=== PATIENT | male | born 1955 | race Caucasian/White ===

== ENCOUNTER 2017-07-30 15:15 | Inpatient (IN) | payer MEDICARE, OTHER ==
[~2017-07-30] VITALS: Ht 172.7 cm; Wt 90.9 kg
[2017-07-30 16:02] LABS: BASOPHILS % (AUTO) 0.1 % (0-1); EOSINOPHILS % (AUTO) 0 % (0-6); HEMOGLOBIN 15.1 g/dl (14.0-17.9); LYMPHOCYTES # (AUTO) 1.6 X10'3 (1.1-4.8); LYMPHOCYTES % (AUTO) 7.9 % (21-51); MEAN CORPUSCULAR HEMOGLOBIN 29.7 PG (27.0-31.0); MEAN CORPUSCULAR HGB CONC 34.4 % (33.0-36.5); MEAN CORPUSCULAR VOLUME 86.3 FL (78-98); MEAN PLATELET VOLUME 7.6 FL (7.4-10.4); MONOCYTES # (AUTO) 1.3 X10'3 (0-0.9); MONOCYTES % (AUTO) 6.6 % (2-12); NEUTROPHILS # (AUTO) 17.6 X10'3 (1.8-7.7); NEUTROPHILS % (AUTO) 85.4 % (42-75); PLATELET COUNT 235 X10'3 (140-440); WHITE BLOOD COUNT 20.6 X10'3 (4.5-11.0)
[2017-07-30] MEDS ORDERED: vancomycin/NS 1 GM ADD-VANTAGE 250 ML IV ONE ×2 (16:10→19:00)
[2017-07-30 16:12] LABS: INR 1.1 INR; PARTIAL THROMBOPLASTIN TIME 31 SECONDS (22-32); PROTHROMBIN TIME 11.1 SECONDS (9.0-12.0)
[2017-07-30] MEDS ORDERED: ipratropium/albuterol 3ml nebule NEB ONE (16:15)
[2017-07-30 16:19] LABS: ALANINE AMINOTRANSFERASE 35 U/L (12-78); ALBUMIN 3.2 G/DL (3.4-5.0); ALBUMIN/GLOBULIN RATIO 0.7 (1.1-1.5); ALKALINE PHOSPHATASE 66 IU/L (46-116); ANION GAP 8 (8-16); ASPARTATE AMINO TRANSFERASE 15 U/L (10-37); BILIRUBIN,TOTAL 0.8 MG/DL (0.1-1.0); BLOOD UREA NITROGEN 18 MG/DL (7-18); BUN/CREATININE RATIO 15.7 (5.4-32.0); CALCIUM 8.7 MG/DL (8.5-10.1); CHLORIDE 95 MMOL/L (99-107); CREATININE 1.15 MG/DL (0.60-1.10); GLUCOSE 122 MG/DL (70-104); POTASSIUM 3.4 MMOL/L (3.5-5.1); SODIUM 131 MMOL/L (135-145); TOTAL CARBON DIOXIDE 27.7 MMOL/L (24-32); TOTAL PROTEIN 7.9 G/DL (6.4-8.2); eGFR 65 ML/MIN
[2017-07-30] MEDS ORDERED: normal saline 1000ml 1,000 ML IV ONE ×2 (16:35)
[2017-07-30 16:43] LABS: CREATINE KINASE 176 U/L (39-308)
[2017-07-30 17:01] LABS: CLARITY,URINE CLEAR (Clear); COLOR,URINE YELLOW (Yellow); GLUCOSE, URINE NEGATIVE (Neg); KETONES,URINE NEGATIVE (Neg); LEUKOCYTE ESTERASE ,URINE NEGATIVE (Neg); NITRITES, URINE NEGATIVE (Neg); OCCULT BLOOD,URINE SMALL (Neg); PROTEIN,URINE NEGATIVE (Neg); UROBILINOGEN,URINE 0.2 E.U/dL (0.2-1.0)
[2017-07-30 17:11] LABS: UA COLLECTION TYPE CLN CATCH MIDSTREAM
[2017-07-30 17:12] LABS: BACTERIA,URINE NONE SEEN /HPF (Neg); MUCUS STRANDS FEW /LPF (Neg); RBC,URINE 0-2 /HPF (0-2); SQUAMOUS EPITHELIAL CELL,UR FEW /LPF (FEW); WBC,URINE 0-4 /HPF (0-4)
[2017-07-30 17:15] LABS: URINE AMPHETAMINE SCREEN POSITIVE (Neg); URINE BARBITUATE SCREEN NEGATIVE (Neg); URINE BENZODIAZEPINES SCREEN NEGATIVE (Neg); URINE CANNABINOID SCREEN NEGATIVE (Neg); URINE COCAINE SCREEN NEGATIVE (Neg); URINE METHADONE SCREEN NEGATIVE (Neg); URINE OPIATE SCREEN NEGATIVE (Neg); URINE PHENCYCLIDINE SCREEN NEGATIVE (Neg)
[2017-07-30] MEDS ORDERED: acetaminophen 325mg tablet PO PRN ×4 (17:15→17:20)
[2017-07-30] MEDS ORDERED: ondansetron/PF 4mg/2ml inj IV PRN ×4 (17:15→17:20)
[2017-07-30] MEDS ORDERED: mag hydrox/Alum hydrox/simeth 30ml oral suspension PO PRN ×4 (17:15→17:20)
[2017-07-30] MEDS ORDERED: magnesium hydroxide 30ml (MOM) UD suspension PO PRN ×4 (17:15→17:20)
[2017-07-30] MEDS ORDERED: HYDROcodone/acetaminophen 5mg/325mg tablet PO PRN (17:15)
[2017-07-30] MEDS ORDERED: morphine 4 MG/ML inj SYRINge IV PRN ×2 (17:15)
[2017-07-30] MEDS ORDERED: magnesium 4gm in 100ml NS 100 ML IV PRN (17:20)
[2017-07-30] MEDS ORDERED: potassium Cl 40MEQ/NS 500ml 500 ML IV PRN ×2 (17:20)
[2017-07-30] MEDS ORDERED: potassium Cl 20 mEq SR tablet PO PRN (17:20)
[2017-07-30] MEDS ORDERED: magnesium Cl slow-release 64mg tablet PO PRN (17:20)
[2017-07-30] MEDS ORDERED: magnesium 2GM in 50ml NS 50 ML IV PRN (17:20)
[2017-07-30] MEDS: normal saline 1000ml 1,000 ML IV SCH (18:39)
[2017-07-30 20:30] VITALS: BP 119/72
[2017-07-30] MEDS: heparin, porcine 5000 units/ml vial SQ SCH (20:34)
[2017-07-30] MEDS: docusate sod 100mg capsule PO SCH (20:34)
[2017-07-30] MEDS ORDERED: temazepam 15mg capsule PO PRN (21:00)
[2017-07-30] MEDS: piperacillin-tazo 2.25gm/50ml 50 ML IV SCH (23:36)
[2017-07-31] VITALS: BP 118/74
[2017-07-31] MEDS: albuterol 2.5 MG/3 ML nebule NEB PRN ×2 (02:47→07:12)
[2017-07-31] MEDS: normal saline 1000ml 1,000 ML IV SCH ×3 (03:23→23:14)
[2017-07-31] MEDS: vancomycin inj 1,250 MG in normal saline 250ml IV soln 250 ML IV SCH ×2 (04:33→16:33)
[2017-07-31 04:43] LABS: BASOPHILS % (AUTO) 0.1 % (0-1); EOSINOPHILS # (AUTO) 0.1 X10'3 (0-0.9); EOSINOPHILS % (AUTO) 0.5 % (0-6); HEMATOCRIT 36.2 % (42.0-52.0); HEMOGLOBIN 12.5 g/dl (14.0-17.9); LYMPHOCYTES # (AUTO) 1.3 X10'3 (1.1-4.8); LYMPHOCYTES % (AUTO) 8.2 % (21-51); MEAN CORPUSCULAR HEMOGLOBIN 29.9 PG (27.0-31.0); MEAN CORPUSCULAR HGB CONC 34.6 % (33.0-36.5); MEAN CORPUSCULAR VOLUME 86.6 FL (78-98); MEAN PLATELET VOLUME 6.9 FL (7.4-10.4); MONOCYTES # (AUTO) 1.2 X10'3 (0-0.9); MONOCYTES % (AUTO) 7.2 % (2-12); NEUTROPHILS # (AUTO) 13.6 X10'3 (1.8-7.7); PLATELET COUNT 184 X10'3 (140-440); RED BLOOD COUNT 4.18 X10'6 (4.70-6.10); RED CELL DISTRIBUTION WIDTH 17.5 % (11.5-14.5); WHITE BLOOD COUNT 16.2 X10'3 (4.5-11.0)
[2017-07-31 05:01] LABS: ALANINE AMINOTRANSFERASE 30 U/L (12-78); ALBUMIN 2.5 G/DL (3.4-5.0); ALBUMIN/GLOBULIN RATIO 0.6 (1.1-1.5); ALKALINE PHOSPHATASE 51 IU/L (46-116); ANION GAP 10 (8-16); ASPARTATE AMINO TRANSFERASE 15 U/L (10-37); BILIRUBIN,TOTAL 0.7 MG/DL (0.1-1.0); BLOOD UREA NITROGEN 15 MG/DL (7-18); BUN/CREATININE RATIO 16.9 (5.4-32.0); CALCIUM 7.6 MG/DL (8.5-10.1); CHLORIDE 98 MMOL/L (99-107); CREATININE 0.89 MG/DL (0.60-1.10); GLUCOSE 110 MG/DL (70-104); MAGNESIUM 1.5 MG/DL (1.5-2.4); POTASSIUM 3.5 MMOL/L (3.5-5.1); SODIUM 132 MMOL/L (135-145); TOTAL CARBON DIOXIDE 23.8 MMOL/L (24-32); TOTAL PROTEIN 6.4 G/DL (6.4-8.2); eGFR 87 ML/MIN
[2017-07-31] MEDS: acetaminophen 325mg tablet PO PRN ×2 (06:44→23:23)
[2017-07-31 06:48] VITALS: BP 130/79
[2017-07-31] MEDS ORDERED: FLU VACC QS2017-18 36MOS UP/PF 60 MCG/0.5 ML SYRINGE IMVAC ONE (07:00)
[2017-07-31] MEDS ORDERED: pneumococcal 23-VAL P-sac vacc 25 mcg/0.5ml vial IMVAC ONE (07:00)
[2017-07-31] MEDS: K and/or MAG REPLACEMENT MC SCH (08:00)
[2017-07-31] MEDS: piperacillin-tazo 2.25gm/50ml 50 ML IV SCH ×3 (08:30→23:32)
[2017-07-31] MEDS: heparin, porcine 5000 units/ml vial SQ SCH ×2 (08:33→20:39)
[2017-07-31] MEDS: docusate sod 100mg capsule PO SCH ×2 (08:33→20:38)
[2017-07-31] MEDS: diltiazem CD 120mg capsule (once-daily) PO SCH (08:34)
[2017-07-31] MEDS: montelukast 10mg tablet PO SCH (08:34)
[2017-07-31] MEDS: HYDROcodone/acetaminophen 10/325mg tab PO PRN ×2 (08:34→15:28)
[2017-07-31] MEDS: pantoprazole 40mg Tablet.DR PO SCH (08:34)
[2017-07-31 11:00] VITALS: BP 104/73
[2017-07-31] MEDS ORDERED: BUDE10.2 INH (12:03)
[2017-07-31] MEDS ORDERED: TIOT4MIS5 IH (12:03)
[2017-07-31] MEDS ORDERED: ALBU6.7H INH (12:03)
[2017-07-31] MEDS: ipratropium 0.5 MG/2.5ML nebule IH SCH ×2 (15:39→20:18)
[2017-07-31] MEDS: fluticasone/vilanterol 200mcg/25mcg inhaler IH SCH (15:39)
[2017-07-31 20:00] VITALS: BP 101/71
[2017-07-31] MEDS: lactobacillus rhamnosus 10,000 MMU CELLS/CAPSULE PO SCH (20:38)
[2017-08-01] VITALS: BP 122/85
[2017-08-01] MEDS: ipratropium 0.5 MG/2.5ML nebule IH SCH ×4 (02:53→21:59)
[2017-08-01] MEDS ORDERED: VANCOMYCIN LEVEL IV ONE (04:30)
[2017-08-01] MEDS: vancomycin inj 1,250 MG in normal saline 250ml IV soln 250 ML IV SCH ×3 (04:49→22:11)
[2017-08-01 05:15] LABS: BASOPHILS % (AUTO) 0.2 % (0-1); EOSINOPHILS # (AUTO) 0.2 X10'3 (0-0.9); EOSINOPHILS % (AUTO) 1.5 % (0-6); HEMATOCRIT 35.6 % (42.0-52.0); HEMOGLOBIN 12.4 g/dl (14.0-17.9); LYMPHOCYTES # (AUTO) 1.5 X10'3 (1.1-4.8); LYMPHOCYTES % (AUTO) 12.8 % (21-51); MEAN CORPUSCULAR HGB CONC 34.7 % (33.0-36.5); MEAN CORPUSCULAR VOLUME 86.2 FL (78-98); MEAN PLATELET VOLUME 7.3 FL (7.4-10.4); MONOCYTES # (AUTO) 1.1 X10'3 (0-0.9); NEUTROPHILS # (AUTO) 8.9 X10'3 (1.8-7.7); NEUTROPHILS % (AUTO) 76.5 % (42-75); PLATELET COUNT 188 X10'3 (140-440); RED BLOOD COUNT 4.13 X10'6 (4.70-6.10); RED CELL DISTRIBUTION WIDTH 17.3 % (11.5-14.5); WHITE BLOOD COUNT 11.7 X10'3 (4.5-11.0)
[2017-08-01 06:00] VITALS: BP 121/72
[2017-08-01] MEDS: normal saline 1000ml 1,000 ML IV SCH ×3 (06:08→22:16)
[2017-08-01 06:12] LABS: ALANINE AMINOTRANSFERASE 27 U/L (12-78); ALBUMIN 2.3 G/DL (3.4-5.0); ALBUMIN/GLOBULIN RATIO 0.5 (1.1-1.5); ALKALINE PHOSPHATASE 54 IU/L (46-116); ANION GAP 10 (8-16); ASPARTATE AMINO TRANSFERASE 17 U/L (10-37); BILIRUBIN,TOTAL 0.6 MG/DL (0.1-1.0); BLOOD UREA NITROGEN 13 MG/DL (7-18); BUN/CREATININE RATIO 15.1 (5.4-32.0); CALCIUM 7.9 MG/DL (8.5-10.1); CHLORIDE 98 MMOL/L (99-107); CREATININE 0.86 MG/DL (0.60-1.10); GLUCOSE 101 MG/DL (70-104); MAGNESIUM 1.7 MG/DL (1.5-2.4); POTASSIUM 3.4 MMOL/L (3.5-5.1); SODIUM 132 MMOL/L (135-145); TOTAL CARBON DIOXIDE 24.5 MMOL/L (24-32); TOTAL PROTEIN 6.6 G/DL (6.4-8.2); VANCOMYCIN,TROUGH 6.7 UG/ML (6.0-14.0); eGFR > 90 ML/MIN
[2017-08-01] MEDS: docusate sod 100mg capsule PO SCH ×2 (07:37→19:33)
[2017-08-01] MEDS: lactobacillus rhamnosus 10,000 MMU CELLS/CAPSULE PO SCH ×2 (07:37→19:33)
[2017-08-01] MEDS: diltiazem CD 120mg capsule (once-daily) PO SCH (07:37)
[2017-08-01] MEDS: pantoprazole 40mg Tablet.DR PO SCH (07:37)
[2017-08-01] MEDS: piperacillin-tazo 2.25gm/50ml 50 ML IV SCH ×2 (07:37→16:45)
[2017-08-01] MEDS: montelukast 10mg tablet PO SCH (07:37)
[2017-08-01] MEDS: heparin, porcine 5000 units/ml vial SQ SCH ×2 (07:38→19:33)
[2017-08-01] MEDS: potassium Cl 20 mEq SR tablet PO PRN ×3 (07:48→19:35)
[2017-08-01] MEDS: HYDROcodone/acetaminophen 10/325mg tab PO PRN ×2 (07:48→13:20)
[2017-08-01] MEDS: K and/or MAG REPLACEMENT MC SCH (08:00)
[2017-08-01] MEDS: fluticasone/vilanterol 200mcg/25mcg inhaler IH SCH (08:12)
[2017-08-01 11:24] VITALS: BP 106/69
[2017-08-01 12:19] LABS: BASOPHILS % (AUTO) 0.2 % (0-1); EOSINOPHILS # (AUTO) 0.2 X10'3 (0-0.9); EOSINOPHILS % (AUTO) 1.4 % (0-6); HEMATOCRIT 36.8 % (42.0-52.0); LYMPHOCYTES # (AUTO) 1.6 X10'3 (1.1-4.8); LYMPHOCYTES % (AUTO) 12.1 % (21-51); MEAN CORPUSCULAR HEMOGLOBIN 30.1 PG (27.0-31.0); MEAN CORPUSCULAR HGB CONC 35.2 % (33.0-36.5); MEAN CORPUSCULAR VOLUME 85.6 FL (78-98); MEAN PLATELET VOLUME 6.9 FL (7.4-10.4); MONOCYTES # (AUTO) 1.3 X10'3 (0-0.9); MONOCYTES % (AUTO) 9.5 % (2-12); NEUTROPHILS # (AUTO) 10.1 X10'3 (1.8-7.7); NEUTROPHILS % (AUTO) 76.8 % (42-75); PLATELET COUNT 205 X10'3 (140-440); RED CELL DISTRIBUTION WIDTH 16.5 % (11.5-14.5); WHITE BLOOD COUNT 13.2 X10'3 (4.5-11.0)
[2017-08-01 12:37] LABS: ALBUMIN 2.5 G/DL (3.4-5.0); ANION GAP 10 (8-16); BLOOD UREA NITROGEN 11 MG/DL (7-18); BUN/CREATININE RATIO 12.1 (5.4-32.0); CALCIUM 8.4 MG/DL (8.5-10.1); CHLORIDE 97 MMOL/L (99-107); CREATININE 0.91 MG/DL (0.60-1.10); GLUCOSE 101 MG/DL (70-104); POTASSIUM 3.7 MMOL/L (3.5-5.1); SODIUM 131 MMOL/L (135-145); TOTAL CARBON DIOXIDE 24.5 MMOL/L (24-32); eGFR 85 ML/MIN
[2017-08-01] MEDS ORDERED: morphine 2 MG/ML inj. syringe IV PRN ×2 (15:35→15:40)
[2017-08-01 21:00] VITALS: BP 110/73
[2017-08-02] VITALS: BP 131/84
[2017-08-02] MEDS: piperacillin-tazo 2.25gm/50ml 50 ML IV SCH ×4 (00:10→23:50)
[2017-08-02] MEDS: acetaminophen 325mg tablet PO PRN (00:16)
[2017-08-02] MEDS: ipratropium 0.5 MG/2.5ML nebule IH SCH ×4 (04:06→20:36)
[2017-08-02] MEDS: vancomycin inj 1,250 MG in normal saline 250ml IV soln 250 ML IV SCH (04:41)
[2017-08-02 05:29] LABS: BASOPHILS % (AUTO) 0.1 % (0-1); EOSINOPHILS # (AUTO) 0.1 X10'3 (0-0.9); EOSINOPHILS % (AUTO) 1.2 % (0-6); HEMATOCRIT 35.4 % (42.0-52.0); HEMOGLOBIN 12.5 g/dl (14.0-17.9); LYMPHOCYTES # (AUTO) 1.7 X10'3 (1.1-4.8); LYMPHOCYTES % (AUTO) 14.2 % (21-51); MEAN CORPUSCULAR HEMOGLOBIN 30.6 PG (27.0-31.0); MEAN CORPUSCULAR HGB CONC 35.3 % (33.0-36.5); MEAN CORPUSCULAR VOLUME 86.6 FL (78-98); MEAN PLATELET VOLUME 7.4 FL (7.4-10.4); MONOCYTES # (AUTO) 1.2 X10'3 (0-0.9); MONOCYTES % (AUTO) 10.3 % (2-12); NEUTROPHILS # (AUTO) 8.8 X10'3 (1.8-7.7); NEUTROPHILS % (AUTO) 74.2 % (42-75); PLATELET COUNT 221 X10'3 (140-440); RED BLOOD COUNT 4.09 X10'6 (4.70-6.10); RED CELL DISTRIBUTION WIDTH 16.1 % (11.5-14.5); WHITE BLOOD COUNT 11.8 X10'3 (4.5-11.0)
[2017-08-02 05:59] LABS: ALANINE AMINOTRANSFERASE 29 U/L (12-78); ALBUMIN 2.3 G/DL (3.4-5.0); ALBUMIN/GLOBULIN RATIO 0.5 (1.1-1.5); ALKALINE PHOSPHATASE 71 IU/L (46-116); ANION GAP 8 (8-16); ASPARTATE AMINO TRANSFERASE 19 U/L (10-37); BILIRUBIN,TOTAL 0.5 MG/DL (0.1-1.0); BLOOD UREA NITROGEN 11 MG/DL (7-18); BUN/CREATININE RATIO 13.1 (5.4-32.0); CALCIUM 8.3 MG/DL (8.5-10.1); CHLORIDE 99 MMOL/L (99-107); CREATININE 0.84 MG/DL (0.60-1.10); GLUCOSE 99 MG/DL (70-104); POTASSIUM 3.7 MMOL/L (3.5-5.1); SODIUM 134 MMOL/L (135-145); TOTAL CARBON DIOXIDE 26.6 MMOL/L (24-32); eGFR > 90 ML/MIN
[2017-08-02] MEDS: normal saline 1000ml 1,000 ML IV SCH ×3 (06:08→22:23)
[2017-08-02 07:41] VITALS: BP 105/79
[2017-08-02] MEDS: docusate sod 100mg capsule PO SCH ×2 (07:49→20:26)
[2017-08-02] MEDS: montelukast 10mg tablet PO SCH (07:50)
[2017-08-02] MEDS: diltiazem CD 120mg capsule (once-daily) PO SCH (07:50)
[2017-08-02] MEDS: lactobacillus rhamnosus 10,000 MMU CELLS/CAPSULE PO SCH ×2 (07:50→20:26)
[2017-08-02] MEDS: pantoprazole 40mg Tablet.DR PO SCH (07:50)
[2017-08-02] MEDS: heparin, porcine 5000 units/ml vial SQ SCH ×2 (07:51→20:28)
[2017-08-02] MEDS: K and/or MAG REPLACEMENT MC SCH (08:00)
[2017-08-02] MEDS: fluticasone/vilanterol 200mcg/25mcg inhaler IH SCH (09:29)
[2017-08-02 11:00] VITALS: BP 99/48
[2017-08-02] MEDS ORDERED: ATOR10TA70 PO (11:47)
[2017-08-02] MEDS ORDERED: DILT120C62 PO (11:47)
[2017-08-02] MEDS ORDERED: POTA10TA15 PO (11:47)
[2017-08-02] MEDS ORDERED: CHOL500026 PO (11:47)
[2017-08-02] MEDS ORDERED: MONT10TA24 PO (11:47)
[2017-08-02] MEDS ORDERED: MAGN400C PO (11:47)
[2017-08-02] MEDS ORDERED: MAGNESIUM PO (11:47)
[2017-08-02] MEDS ORDERED: VANCOMYCIN LEVEL IV ONE (12:30)
[2017-08-02 18:30] VITALS: BP 137/75
[2017-08-03] VITALS: BP 120/85
[2017-08-03] MEDS: ipratropium 0.5 MG/2.5ML nebule IH SCH ×3 (03:37→14:04)
[2017-08-03 05:11] LABS: BASOPHILS % (AUTO) 0.3 % (0-1); EOSINOPHILS # (AUTO) 0.2 X10'3 (0-0.9); EOSINOPHILS % (AUTO) 2.7 % (0-6); HEMATOCRIT 35.8 % (42.0-52.0); HEMOGLOBIN 12.5 g/dl (14.0-17.9); LYMPHOCYTES # (AUTO) 1.8 X10'3 (1.1-4.8); LYMPHOCYTES % (AUTO) 21.6 % (21-51); MEAN CORPUSCULAR HEMOGLOBIN 30.2 PG (27.0-31.0); MEAN CORPUSCULAR VOLUME 86.3 FL (78-98); MEAN PLATELET VOLUME 6.9 FL (7.4-10.4); MONOCYTES # (AUTO) 0.9 X10'3 (0-0.9); MONOCYTES % (AUTO) 10.1 % (2-12); NEUTROPHILS # (AUTO) 5.6 X10'3 (1.8-7.7); NEUTROPHILS % (AUTO) 65.3 % (42-75); PLATELET COUNT 248 X10'3 (140-440); RED BLOOD COUNT 4.14 X10'6 (4.70-6.10); RED CELL DISTRIBUTION WIDTH 16.9 % (11.5-14.5); WHITE BLOOD COUNT 8.5 X10'3 (4.5-11.0)
[2017-08-03 05:16] LABS: ALANINE AMINOTRANSFERASE 35 U/L (12-78); ALBUMIN 2.2 G/DL (3.4-5.0); ALBUMIN/GLOBULIN RATIO 0.5 (1.1-1.5); ALKALINE PHOSPHATASE 53 IU/L (46-116); ANION GAP 6 (8-16); ASPARTATE AMINO TRANSFERASE 16 U/L (10-37); BILIRUBIN,TOTAL 0.3 MG/DL (0.1-1.0); BLOOD UREA NITROGEN 12 MG/DL (7-18); BUN/CREATININE RATIO 14.1 (5.4-32.0); CALCIUM 8.5 MG/DL (8.5-10.1); CHLORIDE 101 MMOL/L (99-107); CREATININE 0.85 MG/DL (0.60-1.10); GLUCOSE 106 MG/DL (70-104); MAGNESIUM 2.1 MG/DL (1.5-2.4); POTASSIUM 3.7 MMOL/L (3.5-5.1); SODIUM 135 MMOL/L (135-145); TOTAL CARBON DIOXIDE 27.8 MMOL/L (24-32); TOTAL PROTEIN 6.9 G/DL (6.4-8.2); eGFR > 90 ML/MIN
[2017-08-03] MEDS: normal saline 1000ml 1,000 ML IV SCH ×3 (05:28→20:45)
[2017-08-03 07:00] VITALS: BP 129/93
[2017-08-03] MEDS: piperacillin-tazo 2.25gm/50ml 50 ML IV SCH (07:53)
[2017-08-03] MEDS: lactobacillus rhamnosus 10,000 MMU CELLS/CAPSULE PO SCH ×2 (07:53→20:45)
[2017-08-03] MEDS: pantoprazole 40mg Tablet.DR PO SCH (07:53)
[2017-08-03] MEDS: diltiazem CD 120mg capsule (once-daily) PO SCH (07:53)
[2017-08-03] MEDS: montelukast 10mg tablet PO SCH (07:53)
[2017-08-03] MEDS: docusate sod 100mg capsule PO SCH ×2 (07:53→20:45)
[2017-08-03] MEDS: heparin, porcine 5000 units/ml vial SQ SCH ×2 (07:54→20:45)
[2017-08-03] MEDS: K and/or MAG REPLACEMENT MC SCH (07:54)
[2017-08-03] MEDS: fluticasone/vilanterol 200mcg/25mcg inhaler IH SCH (08:00)
[2017-08-03 11:00] VITALS: BP 121/80
[2017-08-03] MEDS ORDERED: VANCOMYCIN LEVEL IV ONE (12:30)
[2017-08-03] MEDS ORDERED: vancomycin inj 1,250 MG in normal saline 250ml IV soln 250 ML IV SCH (14:00)
[2017-08-03] MEDS: piperacillin/tazobactam inj. 3.375 GM in normal saline 100ml IV SCH ×2 (15:09→20:45)
[2017-08-03] MEDS: vancomycin inj 1,250 MG in normal saline 250ml IV soln 250 ML IV SCH (16:21)
[2017-08-03] MEDS ORDERED: MORPHINE 2MG in 2ml NS syringe IV PRN (16:51)
[2017-08-03 19:00] VITALS: BP 130/77
[2017-08-03] MEDS ORDERED: normal saline 1000ml 1,000 ML IV SCH (20:46)
[2017-08-04] MEDS: ipratropium 0.5 MG/2.5ML nebule IH SCH ×2 (00:17→07:59)
[2017-08-04] MEDS: piperacillin/tazobactam inj. 3.375 GM in normal saline 100ml IV SCH ×2 (02:18→07:27)
[2017-08-04] MEDS: albuterol 2.5 MG/3 ML nebule NEB PRN (03:27)
[2017-08-04 05:28] LABS: BASOPHILS % (AUTO) 0.5 % (0-1); EOSINOPHILS # (AUTO) 0.2 X10'3 (0-0.9); EOSINOPHILS % (AUTO) 2.8 % (0-6); HEMATOCRIT 38.6 % (42.0-52.0); HEMOGLOBIN 13.6 g/dl (14.0-17.9); LYMPHOCYTES # (AUTO) 2.2 X10'3 (1.1-4.8); LYMPHOCYTES % (AUTO) 25.7 % (21-51); MEAN CORPUSCULAR HEMOGLOBIN 30.3 PG (27.0-31.0); MEAN CORPUSCULAR HGB CONC 35.2 % (33.0-36.5); MEAN CORPUSCULAR VOLUME 85.9 FL (78-98); MEAN PLATELET VOLUME 6.6 FL (7.4-10.4); MONOCYTES # (AUTO) 0.8 X10'3 (0-0.9); MONOCYTES % (AUTO) 8.9 % (2-12); NEUTROPHILS # (AUTO) 5.2 X10'3 (1.8-7.7); NEUTROPHILS % (AUTO) 62.1 % (42-75); PLATELET COUNT 316 X10'3 (140-440); RED BLOOD COUNT 4.49 X10'6 (4.70-6.10); RED CELL DISTRIBUTION WIDTH 16.7 % (11.5-14.5); WHITE BLOOD COUNT 8.4 X10'3 (4.5-11.0)
[2017-08-04 06:07] LABS: ALANINE AMINOTRANSFERASE 43 U/L (12-78); ALBUMIN 2.5 G/DL (3.4-5.0); ALBUMIN/GLOBULIN RATIO 0.5 (1.1-1.5); ALKALINE PHOSPHATASE 59 IU/L (46-116); ANION GAP 7 (8-16); ASPARTATE AMINO TRANSFERASE 20 U/L (10-37); BILIRUBIN,TOTAL 0.3 MG/DL (0.1-1.0); BLOOD UREA NITROGEN 14 MG/DL (7-18); BUN/CREATININE RATIO 12.8 (5.4-32.0); CALCIUM 9.2 MG/DL (8.5-10.1); CHLORIDE 100 MMOL/L (99-107); CREATININE 1.09 MG/DL (0.60-1.10); GLUCOSE 107 MG/DL (70-104); POTASSIUM 4.1 MMOL/L (3.5-5.1); SODIUM 138 MMOL/L (135-145); TOTAL CARBON DIOXIDE 30.6 MMOL/L (24-32); TOTAL PROTEIN 7.5 G/DL (6.4-8.2); eGFR 69 ML/MIN
[2017-08-04 06:56] VITALS: BP 120/81
[2017-08-04 07:00] VITALS: BP 116/82
[2017-08-04] MEDS: K and/or MAG REPLACEMENT MC SCH (07:14)
[2017-08-04] MEDS: docusate sod 100mg capsule PO SCH (07:27)
[2017-08-04] MEDS: pantoprazole 40mg Tablet.DR PO SCH (07:27)
[2017-08-04] MEDS: diltiazem CD 120mg capsule (once-daily) PO SCH (07:27)
[2017-08-04] MEDS: montelukast 10mg tablet PO SCH (07:27)
[2017-08-04] MEDS: heparin, porcine 5000 units/ml vial SQ SCH ×2 (07:27→08:00)
[2017-08-04] MEDS: lactobacillus rhamnosus 10,000 MMU CELLS/CAPSULE PO SCH (07:27)
[2017-08-04] MEDS ORDERED: AMOX-580 PO (09:07)
[2017-08-04] MEDS ORDERED: POTA10TA15 PO (09:07)
[2017-08-04] MEDS ORDERED: NICO-731 TOP (09:13)
[2017-08-04] MEDS: vancomycin inj 1,250 MG in normal saline 250ml IV soln 250 ML IV SCH ×3 (09:32)
[2017-08-04] MEDS ORDERED: VANCOMYCIN LEVEL IV ONE (15:30)
== END 2017-08-04 12:23 | disposition home or self-care (01) | DRG 872 ==
LOC: ER 15:16 → ED HOLD 16:43 → SUR 3N 20:40
PROVIDERS: ADMIT Internal Medicine; ATTEND Internal Medicine
PROC: 3E0234Z Introduction of Serum, Toxoid and Vaccine into Muscle, Percutaneous Approach (ICD-10-PCS; principal; 2017-07-31)
PROC: 3E0234Z Introduction of Serum, Toxoid and Vaccine into Muscle, Percutaneous Approach (ICD-10-PCS; 2017-07-31)
DX: A41.9 Sepsis, unspecified organism (principal); E87.1 Hypo-osmolality and hyponatremia; L03.114 Cellulitis of left upper limb; I49.9 Cardiac arrhythmia, unspecified; E87.6 Hypokalemia; J45.909 Unspecified asthma, uncomplicated; F15.90 Other stimulant use, unspecified, uncomplicated; F17.210 Nicotine dependence, cigarettes, uncomplicated; Z23 Encounter for immunization; Z79.51 Long term (current) use of inhaled steroids
CPT/HCPCS: 36415; 71045; 80048; 80053; 80202; 80305; 81001; 82550; 83605; 83735; 84145; 85025; 85610; 85730; 87040; 87070; 90732; 93005; 94640; 94760; 97116; 97161; 99285; A6258; J1644; J2543; J3370; J7030

== ENCOUNTER → 2017-12-07 | Emergency (ER) | payer MEDICARE, OTHER ==
[~2017-12-07] VITALS: Ht 172.7 cm; Wt 90.9 kg
[~2017-12-07] MED LIST: ALBU6.7H INH; ATOR10TA70 PO; BUDE10.2 INH; CHOL500026 PO; DILT120C62 PO; LIDOcaine 1.5% w/epinephrine 1:200,000 5ml ampul IJ ONE; MAGNESIUM PO; MONT10TA24 PO; NICO-731 TOP; TETanus/Pertussis (Acell)/Diphther VAC/PF (Tdap-Adult) 0.5ml syringe IMVAC ONE; TIOT4MIS5 IH; ipratropium/albuterol 3ml nebule NEB ONE; normal saline 1000ML IV soln IVB ONE
[2017-12-08 03:05] LABS: BASOPHILS % (AUTO) 0.6 % (0-1); EOSINOPHILS # (AUTO) 0.2 X10'3 (0-0.9); EOSINOPHILS % (AUTO) 2.5 % (0-6); HEMATOCRIT 39.4 % (42.0-52.0); HEMOGLOBIN 13.6 g/dl (14.0-17.9); LYMPHOCYTES # (AUTO) 2.1 X10'3 (1.1-4.8); LYMPHOCYTES % (AUTO) 26.8 % (21-51); MEAN CORPUSCULAR HGB CONC 34.4 % (33.0-36.5); MEAN CORPUSCULAR VOLUME 90.1 FL (78-98); MEAN PLATELET VOLUME 7.1 FL (7.4-10.4); MONOCYTES # (AUTO) 0.7 X10'3 (0-0.9); MONOCYTES % (AUTO) 9.3 % (2-12); NEUTROPHILS # (AUTO) 4.7 X10'3 (1.8-7.7); NEUTROPHILS % (AUTO) 60.8 % (42-75); PLATELET COUNT 240 X10'3 (140-440); RED BLOOD COUNT 4.38 X10'6 (4.70-6.10); RED CELL DISTRIBUTION WIDTH 13.5 % (11.5-14.5); WHITE BLOOD COUNT 7.7 X10'3 (4.5-11.0)
[2017-12-08 03:22] LABS: ALANINE AMINOTRANSFERASE 28 U/L (12-78); ALBUMIN 3.1 G/DL (3.4-5.0); ALBUMIN/GLOBULIN RATIO 0.9 (1.1-1.5); ALKALINE PHOSPHATASE 67 IU/L (46-116); ANION GAP 7 (8-16); ASPARTATE AMINO TRANSFERASE 11 U/L (10-37); BILIRUBIN,TOTAL 0.2 MG/DL (0.1-1.0); BLOOD UREA NITROGEN 18 MG/DL (7-18); BUN/CREATININE RATIO 17.6 (5.4-32.0); CALCIUM 8.6 MG/DL (8.5-10.1); CHLORIDE 104 MMOL/L (99-107); CREATININE 1.02 MG/DL (0.60-1.10); GLUCOSE 115 MG/DL (70-104); POTASSIUM 3.2 MMOL/L (3.5-5.1); SODIUM 139 MMOL/L (135-145); TOTAL CARBON DIOXIDE 27.8 MMOL/L (24-32); TOTAL PROTEIN 6.4 G/DL (6.4-8.2); eGFR 74 ML/MIN
[2017-12-08 03:26] LABS: ETHANOL < 0.010 GM/DL (0.0-0.010)
[2017-12-08 06:05] VITALS: BP 142/94
[2017-12-08 06:10] LABS: URINE AMPHETAMINE SCREEN POSITIVE (Neg); URINE BARBITUATE SCREEN NEGATIVE (Neg); URINE BENZODIAZEPINES SCREEN NEGATIVE (Neg); URINE CANNABINOID SCREEN NEGATIVE (Neg); URINE COCAINE SCREEN NEGATIVE (Neg); URINE METHADONE SCREEN NEGATIVE (Neg); URINE OPIATE SCREEN NEGATIVE (Neg); URINE PHENCYCLIDINE SCREEN NEGATIVE (Neg)
== END | disposition left against medical advice (07) ==
LOC: ER 23:16
DX: S01.01XA Laceration without foreign body of scalp, initial encounter (principal); J45.909 Unspecified asthma, uncomplicated; F17.200 Nicotine dependence, unspecified, uncomplicated; F15.90 Other stimulant use, unspecified, uncomplicated; Z79.899 Other long term (current) drug therapy; W01.0XXA Fall on same level from slipping, tripping and stumbling without subsequent striking against object, initial encounter; Y93.89 Activity, other specified; Y92.89 Other specified places as the place of occurrence of the external cause; Y99.8 Other external cause status
CPT/HCPCS: 12002; 36415; 70450; 72125; 80053; 80305; 80320; 82948; 85025; 90471; 90715; 93005; 94640; 99285; J3490

== ENCOUNTER 2017-12-31 10:34 | Emergency (ER) | payer MEDICARE, OTHER ==
[~2017-12-31] VITALS: Ht 172.7 cm; Wt 71.0 kg
[~2017-12-31 10:34] MED LIST changes: -LIDOcaine 1.5% w/epinephrine 1:200,000 5ml ampul IJ ONE; -TETanus/Pertussis (Acell)/Diphther VAC/PF (Tdap-Adult) 0.5ml syringe IMVAC ONE; -ipratropium/albuterol 3ml nebule NEB ONE; -normal saline 1000ML IV soln IVB ONE
[2017-12-31 10:43] VITALS: BP 143/96
== END 2017-12-31 11:54 | disposition home or self-care (01) ==
LOC: ER 10:35
DX: S01.01XD Laceration without foreign body of scalp, subsequent encounter (principal); I49.9 Cardiac arrhythmia, unspecified; J45.909 Unspecified asthma, uncomplicated; F15.10 Other stimulant abuse, uncomplicated; Z79.899 Other long term (current) drug therapy; W20.8XXD Other cause of strike by thrown, projected or falling object, subsequent encounter
CPT/HCPCS: 99281

== ENCOUNTER 2019-04-07 12:13 | Emergency (ER) | payer MEDICARE, OTHER ==
[~2019-04-07] VITALS: Ht 172.7 cm; Wt 81.8 kg
[~2019-04-07 12:13] MED LIST changes: -ALBU6.7H INH; +ALBU6.7H9 INH
[2019-04-07 12:23] VITALS: BP 133/100
[2019-04-07 13:07] LABS: BASOPHILS # (AUTO) 0.1 X10'3 (0-0.2); BASOPHILS % (AUTO) 0.7 % (0-1); EOSINOPHILS # (AUTO) 0.1 X10'3 (0-0.9); EOSINOPHILS % (AUTO) 0.9 % (0-6); HEMOGLOBIN 14.3 g/dl (14.0-17.9); LYMPHOCYTES # (AUTO) 1.9 X10'3 (1.1-4.8); LYMPHOCYTES % (AUTO) 16.4 % (21-51); MEAN CORPUSCULAR HEMOGLOBIN 30.8 PG (27.0-31.0); MEAN CORPUSCULAR VOLUME 90.6 FL (78-98); MEAN PLATELET VOLUME 6.7 FL (7.4-10.4); MONOCYTES # (AUTO) 1.1 X10'3 (0-0.9); MONOCYTES % (AUTO) 9.6 % (2-12); NEUTROPHILS # (AUTO) 8.3 X10'3 (1.8-7.7); NEUTROPHILS % (AUTO) 72.4 % (42-75); PLATELET COUNT 249 X10'3 (140-440); RED BLOOD COUNT 4.64 X10'6 (4.70-6.10); RED CELL DISTRIBUTION WIDTH 13.6 % (11.5-14.5); WHITE BLOOD COUNT 11.4 X10'3 (4.5-11.0)
[2019-04-07] MEDS ORDERED: BUDE10.2 INH (13:20)
[2019-04-07] MEDS ORDERED: ALBU8.5H8 INH (13:20)
[2019-04-07] MEDS ORDERED: ipratropium/albuterol 3ml nebule NEB ONE (13:20)
[2019-04-07] MEDS ORDERED: PRED20TA PO (13:20)
[2019-04-07] MEDS ORDERED: AZIT-63 PO (13:20)
[2019-04-07] MEDS ORDERED: azithromycin 250mg tablet PO ONE (13:20)
[2019-04-07] MEDS ORDERED: dexamethasone 4mg tablet PO ONE (13:20)
[2019-04-07 13:21] LABS: ALANINE AMINOTRANSFERASE 40 U/L (12-78); ALBUMIN 3.6 G/DL (3.4-5.0); ALBUMIN/GLOBULIN RATIO 0.9 (1.1-1.5); ALKALINE PHOSPHATASE 74 IU/L (46-116); ANION GAP 6 (8-16); ASPARTATE AMINO TRANSFERASE 29 U/L (10-37); BILIRUBIN,TOTAL 0.7 MG/DL (0.1-1.0); BLOOD UREA NITROGEN 18 MG/DL (7-18); BUN/CREATININE RATIO 22.8 (5.4-32.0); CALCIUM 8.4 MG/DL (8.5-10.1); CHLORIDE 101 MMOL/L (99-107); CREATININE 0.79 MG/DL (0.60-1.10); GLUCOSE 97 MG/DL (70-104); LIPASE 70 U/L (73-393); POTASSIUM 3.9 MMOL/L (3.5-5.1); SODIUM 136 MMOL/L (135-145); TOTAL CARBON DIOXIDE 28.9 MMOL/L (24-32); TOTAL PROTEIN 7.7 G/DL (6.4-8.2); eGFR > 90 ML/MIN
[2019-04-07 13:37] LABS: TROPONIN I < 0.04 NG/ML (0.0-0.05)
== END 2019-04-07 14:13 | disposition home or self-care (01) ==
LOC: ER 12:13
DX: J44.1 Chronic obstructive pulmonary disease with (acute) exacerbation (principal); F15.90 Other stimulant use, unspecified, uncomplicated; Z79.899 Other long term (current) drug therapy
CPT/HCPCS: 36415; 71045; 80053; 83690; 84484; 85025; 94640; 94760; 99284

== ENCOUNTER 2019-09-28 16:02 | Emergency (ER) | payer OTHER, MEDICARE ==
[~2019-09-28] VITALS: Ht 177.8 cm; Wt 90.0 kg
[~2019-09-28 16:02] MED LIST changes: +ALBU8.5H8 INH; -MONT10TA24 PO; +MONT10TA26 PO
[2019-09-28] MEDS ORDERED: TETanus/Pertussis (Acell)/Diphther VAC/PF (Tdap-Adult) 0.5ml syringe IMVAC ONE (16:20)
[2019-09-28] MEDS ORDERED: LIDOcaine 1% W/epiNEPHrine 1:200,000 10ml vial IJ ONE (16:20)
[2019-09-28] MEDS ORDERED: LIDOcaine 1% w/epiNEPHrine 1:200,000 30ml vial SQ ONE (16:50)
[2019-09-28 17:14] LABS: BASOPHILS % (AUTO) 0.4 % (0-1); EOSINOPHILS # (AUTO) 0.1 X10'3 (0-0.9); EOSINOPHILS % (AUTO) 0.6 % (0-6); HEMATOCRIT 40.1 % (42.0-52.0); HEMOGLOBIN 13.4 g/dl (14.0-17.9); LYMPHOCYTES # (AUTO) 1.6 X10'3 (1.1-4.8); LYMPHOCYTES % (AUTO) 14.3 % (21-51); MEAN CORPUSCULAR HEMOGLOBIN 30.4 PG (27.0-31.0); MEAN CORPUSCULAR HGB CONC 33.3 g/dL (33.0-36.5); MEAN CORPUSCULAR VOLUME 91.3 FL (78-98); MONOCYTES # (AUTO) 0.9 X10'3 (0-0.9); MONOCYTES % (AUTO) 8.5 % (2-12); NEUTROPHILS # (AUTO) 8.5 X10'3 (1.8-7.7); NEUTROPHILS % (AUTO) 76.2 % (42-75); PLATELET COUNT 268 X10'3 (140-440); RED BLOOD COUNT 4.39 X10'6 (4.70-6.10); WHITE BLOOD COUNT 11.2 X10'3 (4.5-11.0)
[2019-09-28 17:17] LABS: ALANINE AMINOTRANSFERASE 31 U/L (12-78); ALBUMIN 3.4 G/DL (3.4-5.0); ALBUMIN/GLOBULIN RATIO 1.1 (1.1-1.5); ALKALINE PHOSPHATASE 65 IU/L (46-116); ANION GAP 5 (8-16); ASPARTATE AMINO TRANSFERASE 22 U/L (10-37); BILIRUBIN,TOTAL 0.2 MG/DL (0.1-1.0); BLOOD UREA NITROGEN 18 MG/DL (7-18); CALCIUM 8.2 MG/DL (8.5-10.1); CHLORIDE 104 MMOL/L (99-107); ETHANOL < 0.010 GM/DL (0.0-0.010); GLUCOSE 116 MG/DL (70-104); POTASSIUM 4.1 MMOL/L (3.5-5.1); SODIUM 137 MMOL/L (135-145); TOTAL CARBON DIOXIDE 28.5 MMOL/L (24-32); TOTAL PROTEIN 6.6 G/DL (6.4-8.2); eGFR 85 ML/MIN
[2019-09-28 18:36] VITALS: BP 111/85
== END 2019-09-28 18:39 | disposition home or self-care (01) ==
LOC: ER 16:02
DX: S01.81XA Laceration without foreign body of other part of head, initial encounter (principal); M54.2 Cervicalgia; J45.909 Unspecified asthma, uncomplicated; F15.90 Other stimulant use, unspecified, uncomplicated; Z79.899 Other long term (current) drug therapy; Y04.2XXA Assault by strike against or bumped into by another person, initial encounter; Y93.89 Activity, other specified; Y92.89 Other specified places as the place of occurrence of the external cause; Y99.8 Other external cause status
CPT/HCPCS: 12015; 36415; 70450; 70486; 72125; 80053; 80320; 85025; 90471; 90715; 99285

== ENCOUNTER 2020-05-07 10:24 | Emergency (ER) | payer OTHER, MEDICARE ==
[~2020-05-07] VITALS: Ht 172.7 cm; Wt 83.2 kg
[~2020-05-07 10:24] MED LIST changes: -MONT10TA26 PO; +MONT10TA97 PO
[2020-05-07 10:37] VITALS: BP 135/89
[2020-05-07] MEDS ORDERED: ALBU6.7H9 INH (11:05)
[2020-05-07] MEDS ORDERED: PRED20TA PO (11:05)
== END 2020-05-07 11:26 | disposition home or self-care (01) ==
LOC: ER 10:25
DX: J06.9 Acute upper respiratory infection, unspecified (principal); R05 Cough; Z20.828 Contact with and (suspected) exposure to other viral communicable diseases; J45.901 Unspecified asthma with (acute) exacerbation; F15.90 Other stimulant use, unspecified, uncomplicated; Z72.89 Other problems related to lifestyle; Z79.899 Other long term (current) drug therapy
CPT/HCPCS: 36415; 71045; 87635; 99284

== ENCOUNTER 2021-01-24 12:48 | Inpatient (IN) | payer OTHER, MEDICARE ==
[~2021-01-24] VITALS: Ht 172.7 cm; Wt 85.0 kg
[~2021-01-24 12:48] MED LIST changes: -ALBU8.5H8 INH; -CHOL500026 PO; +MAGN400C PO; -MAGNESIUM PO; +MONT10TA32 PO; -MONT10TA97 PO; -NICO-731 TOP; +POTA10TA36 PO; +[UNRECOGNIZED DRUG - CODE] PO
[2021-01-24] MEDS ORDERED: normal saline 1000ML IV soln IV ONE (14:10)
[2021-01-24] MEDS ORDERED: vancomycin/NS 1 GM ADD-VANTAGE 250 ML IV ONE (14:10)
[2021-01-24] MEDS ORDERED: piperacillin/tazo 3.375gm/50ml 50 ML IV ONE (14:10)
[2021-01-24 14:32] LABS: EOSINOPHILS # (AUTO) 0.1 X10'3 (0-0.9); HEMATOCRIT 36.9 % (42.0-52.0); HEMOGLOBIN 12.2 g/dl (14.0-17.9); LYMPHOCYTES # (AUTO) 1.7 X10'3 (1.1-4.8); MEAN PLATELET VOLUME 6.3 FL (7.4-10.4)
[2021-01-24 14:33] LABS: BASOPHILS % (AUTO) 0.3 % (0-1); EOSINOPHILS % (AUTO) 0.6 % (0-6); LYMPHOCYTES % (AUTO) 15.1 % (21-51); MONOCYTES # (AUTO) 0.8 X10'3 (0-0.9); MONOCYTES % (AUTO) 7.4 % (2-12); NEUTROPHILS # (AUTO) 8.8 X10'3 (1.8-7.7); NEUTROPHILS % (AUTO) 76.6 % (42-75); PLATELET COUNT 752 X10'3 (140-440); RED BLOOD COUNT 4.06 X10'6 (4.70-6.10); RED CELL DISTRIBUTION WIDTH 13.8 % (11.5-14.5); WHITE BLOOD COUNT 11.5 X10'3 (4.5-11.0)
[2021-01-24 14:46] LABS: ALANINE AMINOTRANSFERASE 33 U/L (12-78); ALBUMIN 2.4 G/DL (3.4-5.0); ALBUMIN/GLOBULIN RATIO 0.5 (1.1-1.5); ALKALINE PHOSPHATASE 67 IU/L (46-116); ANION GAP 4 (8-16); ASPARTATE AMINO TRANSFERASE 13 U/L (10-37); BILIRUBIN,TOTAL 0.4 MG/DL (0.1-1.0); BLOOD UREA NITROGEN 12 MG/DL (7-18); BUN/CREATININE RATIO 13.2 (5.4-32.0); CALCIUM 8.4 MG/DL (8.5-10.1); CHLORIDE 102 MMOL/L (99-107); CREATININE 0.91 MG/DL (0.60-1.10); GLUCOSE 107 MG/DL (70-104); MAGNESIUM 2.5 MG/DL (1.5-2.4); POTASSIUM 4.3 MMOL/L (3.5-5.1); SODIUM 137 MMOL/L (135-145); TOTAL CARBON DIOXIDE 31.1 MMOL/L (24-32); TOTAL PROTEIN 7.7 G/DL (6.4-8.2); eGFR 84 ML/MIN
[2021-01-24 15:13] LABS: TOTAL CELLS COUNTED 100
[2021-01-24 15:14] LABS: PLATELET ESTIMATE INCREASED; TOXIC GRANULATION 1+
[2021-01-24 15:16] LABS: LYMPHOCYTES % (MANUAL) 15 % (21-51); MONOCYTES % (MANUAL) 8 % (2-12)
[2021-01-24] MEDS ORDERED: magnesium hydroxide 30ml (MOM) UD suspension PO PRN (16:55)
[2021-01-24] MEDS ORDERED: ondansetron/PF 4mg/2ml inj IV PRN (16:55)
[2021-01-24] MEDS ORDERED: morphine 2 MG/ML inj. syringe IV PRN ×2 (16:55)
[2021-01-24] MEDS ORDERED: HYDROcodone/acetaminophen 10/325mg tab PO PRN (16:55)
[2021-01-24] MEDS ORDERED: potassium Cl 40MEQ/1/2NS 520ml 520 ML IV PRN ×2 (16:55)
[2021-01-24] MEDS ORDERED: magnesium 2GM in 50ml NS 50 ML IV PRN (16:55)
[2021-01-24] MEDS ORDERED: mag hydrox/Alum hydrox/simeth 30ml oral suspension PO PRN (16:55)
[2021-01-24] MEDS ORDERED: acetaminophen 325mg tablet PO PRN ×2 (16:55)
[2021-01-24] MEDS ORDERED: HYDROcodone/acetaminophen 5mg/325mg tablet PO PRN (16:55)
[2021-01-24] MEDS ORDERED: magnesium Cl slow-release 64mg tablet PO PRN (16:55)
[2021-01-24] MEDS ORDERED: magnesium 4gm in 100ml NS 100 ML IV PRN (16:55)
[2021-01-24] MEDS ORDERED: potassium Cl 20 mEq SR tablet PO PRN ×2 (16:55)
[2021-01-24] MEDS ORDERED: albuterol 2.5 MG/3 ML nebule NEB PRN (17:05)
[2021-01-24 18:47] LABS: CLARITY,URINE CLEAR (Clear); COLOR,URINE YELLOW (Yellow); GLUCOSE, URINE NEGATIVE (Neg); KETONES,URINE NEGATIVE (Neg); NITRITES, URINE NEGATIVE (Neg); OCCULT BLOOD,URINE NEGATIVE (Neg); PROTEIN,URINE NEGATIVE (Neg); UA COLLECTION TYPE URINAL
[2021-01-24 18:48] LABS: LEUKOCYTE ESTERASE ,URINE NEGATIVE (Neg); UROBILINOGEN,URINE 0.2 E.U/dL (0.2-1.0)
[2021-01-24 18:50] LABS: URINE AMPHETAMINE SCREEN POSITIVE (Neg); URINE BARBITUATE SCREEN NEGATIVE (Neg); URINE BENZODIAZEPINES SCREEN NEGATIVE (Neg); URINE CANNABINOID SCREEN NEGATIVE (Neg); URINE COCAINE SCREEN NEGATIVE (Neg); URINE METHADONE SCREEN NEGATIVE (Neg); URINE OPIATE SCREEN NEGATIVE (Neg); URINE PHENCYCLIDINE SCREEN NEGATIVE (Neg)
[2021-01-24] MEDS: K and/or MAG REPLACEMENT MC SCH (20:00)
[2021-01-24] MEDS ORDERED: temazepam 15mg capsule PO PRN (21:00)
[2021-01-24] MEDS: heparin, porcine 5000 units/ml vial SQ SCH (21:56)
[2021-01-24] MEDS: normal saline 1000ml 1,000 ML IV SCH (21:56)
[2021-01-25] MEDS: vancomycin/NS 1 GM ADD-VANTAGE 250 ML IV SCH ×2 (02:21→15:23)
[2021-01-25 04:41] LABS: EOSINOPHILS # (AUTO) 0.1 X10'3 (0-0.9); HEMOGLOBIN 10.5 g/dl (14.0-17.9); NEUTROPHILS # (AUTO) 6.5 X10'3 (1.8-7.7)
[2021-01-25 04:42] LABS: BASOPHILS # (AUTO) 0.1 X10'3 (0-0.2); BASOPHILS % (AUTO) 0.6 % (0-1); EOSINOPHILS % (AUTO) 1.1 % (0-6); HEMATOCRIT 31.2 % (42.0-52.0); LYMPHOCYTES # (AUTO) 1.7 X10'3 (1.1-4.8); LYMPHOCYTES % (AUTO) 18.8 % (21-51); MEAN CORPUSCULAR HEMOGLOBIN 30.7 PG (27.0-31.0); MEAN CORPUSCULAR HGB CONC 33.5 g/dL (33.0-36.5); MEAN CORPUSCULAR VOLUME 91.6 FL (78-98); MEAN PLATELET VOLUME 6.4 FL (7.4-10.4); MONOCYTES # (AUTO) 0.8 X10'3 (0-0.9); MONOCYTES % (AUTO) 9.2 % (2-12); NEUTROPHILS % (AUTO) 70.3 % (42-75); PLATELET COUNT 595 X10'3 (140-440); RED BLOOD COUNT 3.41 X10'6 (4.70-6.10); RED CELL DISTRIBUTION WIDTH 13.8 % (11.5-14.5); WHITE BLOOD COUNT 9.2 X10'3 (4.5-11.0)
[2021-01-25 05:02] LABS: ALANINE AMINOTRANSFERASE 30 U/L (12-78); ALBUMIN 1.9 G/DL (3.4-5.0); ALBUMIN/GLOBULIN RATIO 0.4 (1.1-1.5); ALKALINE PHOSPHATASE 55 IU/L (46-116); ANION GAP 10 (8-16); ASPARTATE AMINO TRANSFERASE 14 U/L (10-37); BILIRUBIN,TOTAL 0.3 MG/DL (0.1-1.0); BLOOD UREA NITROGEN 12 MG/DL (7-18); BUN/CREATININE RATIO 13.8 (5.4-32.0); CALCIUM 7.6 MG/DL (8.5-10.1); CHLORIDE 104 MMOL/L (99-107); CREATININE 0.87 MG/DL (0.60-1.10); GLUCOSE 104 MG/DL (70-104); MAGNESIUM 2.2 MG/DL (1.5-2.4); POTASSIUM 4.3 MMOL/L (3.5-5.1); SODIUM 140 MMOL/L (135-145); TOTAL CARBON DIOXIDE 26.5 MMOL/L (24-32); TOTAL PROTEIN 6.2 G/DL (6.4-8.2); eGFR 88 ML/MIN
[2021-01-25 05:41] LABS: PLATELET ESTIMATE INCREASED; TOTAL CELLS COUNTED 100
[2021-01-25] MEDS: nicotine 14mg patch - 24hr TD SCH ×3 (08:00→08:09)
[2021-01-25] MEDS: K and/or MAG REPLACEMENT MC SCH ×2 (08:02→20:00)
[2021-01-25] MEDS: normal saline 1000ml 1,000 ML IV SCH ×2 (08:06→19:35)
[2021-01-25] MEDS: heparin, porcine 5000 units/ml vial SQ SCH ×2 (08:06→21:23)
[2021-01-25] MEDS ORDERED: albuterol 2.5 MG/3 ML nebule NEB PRN (08:50)
[2021-01-25] MEDS ORDERED: albuterol 2.5 MG/3 ML nebule NEB SCH (08:55)
--- NOTE | 2021-01-25 13:05 | NUR ---
Pt is awake and alert. Denies pain. R LE +edema and redness.
[2021-01-25] MEDS: ipratropium/albuterol 3ml nebule IH SCH ×2 (14:44→20:05)
[2021-01-25] MEDS: budesonide 0.5mg/2ml UD nebule IH SCH (20:05)
[2021-01-25] MEDS ORDERED: montelukast 10mg tablet PO SCH (21:00)
[2021-01-25] MEDS: lactobacillus rhamnosus 10,000 MMU CELLS/CAPSULE PO SCH (21:23)
[2021-01-26] MEDS: vancomycin/NS 1 GM ADD-VANTAGE 250 ML IV SCH (02:16)
[2021-01-26] MEDS: ipratropium/albuterol 3ml nebule IH SCH ×2 (02:38→08:05)
[2021-01-26 07:26] LABS: EOSINOPHILS # (AUTO) 0.1 X10'3 (0-0.9); HEMOGLOBIN 11.2 g/dl (14.0-17.9); MEAN CORPUSCULAR VOLUME 91.2 FL (78-98); MEAN PLATELET VOLUME 6.2 FL (7.4-10.4); MONOCYTES # (AUTO) 0.8 X10'3 (0-0.9); NEUTROPHILS # (AUTO) 5.5 X10'3 (1.8-7.7)
[2021-01-26 07:29] LABS: BASOPHILS # (AUTO) 0.1 X10'3 (0-0.2); BASOPHILS % (AUTO) 0.7 % (0-1); EOSINOPHILS % (AUTO) 1.2 % (0-6); HEMATOCRIT 33.6 % (42.0-52.0); LYMPHOCYTES # (AUTO) 1.9 X10'3 (1.1-4.8); LYMPHOCYTES % (AUTO) 22.5 % (21-51); MEAN CORPUSCULAR HEMOGLOBIN 30.5 PG (27.0-31.0); MEAN CORPUSCULAR HGB CONC 33.4 g/dL (33.0-36.5); MONOCYTES % (AUTO) 9.6 % (2-12); PLATELET COUNT 630 X10'3 (140-440); RED BLOOD COUNT 3.68 X10'6 (4.70-6.10); RED CELL DISTRIBUTION WIDTH 13.6 % (11.5-14.5); WHITE BLOOD COUNT 8.3 X10'3 (4.5-11.0)
[2021-01-26 07:37] LABS: ALANINE AMINOTRANSFERASE 22 U/L (12-78); ALBUMIN/GLOBULIN RATIO 0.4 (1.1-1.5); ALKALINE PHOSPHATASE 55 IU/L (46-116); ANION GAP 8 (8-16); ASPARTATE AMINO TRANSFERASE 10 U/L (10-37); BILIRUBIN,TOTAL 0.2 MG/DL (0.1-1.0); BLOOD UREA NITROGEN 10 MG/DL (7-18); BUN/CREATININE RATIO 12.7 (5.4-32.0); CALCIUM 8.3 MG/DL (8.5-10.1); CHLORIDE 106 MMOL/L (99-107); CREATININE 0.79 MG/DL (0.60-1.10); GLUCOSE 104 MG/DL (70-104); POTASSIUM 4.3 MMOL/L (3.5-5.1); SODIUM 141 MMOL/L (135-145); TOTAL CARBON DIOXIDE 27.5 MMOL/L (24-32); TOTAL PROTEIN 6.7 G/DL (6.4-8.2); eGFR > 90 ML/MIN
[2021-01-26 07:38] LABS: MAGNESIUM 2.3 MG/DL (1.5-2.4)
[2021-01-26 07:40] LABS: VANCOMYCIN,TROUGH 20.1 UG/ML (6.0-14.0)
[2021-01-26] MEDS: K and/or MAG REPLACEMENT MC SCH (08:00)
[2021-01-26] MEDS ORDERED: atorvastatin 10mg tablet PO SCH (08:00)
[2021-01-26] MEDS ORDERED: diltiazem CD 120mg capsule (once-daily) PO SCH (08:00)
[2021-01-26] MEDS ORDERED: TIOTROPIUM BROMIDE IH SCH (08:00)
[2021-01-26] MEDS: nicotine 14mg patch - 24hr TD SCH (08:00)
[2021-01-26] MEDS: budesonide 0.5mg/2ml UD nebule IH SCH (08:05)
[2021-01-26 08:06] LABS: PLATELET ESTIMATE INCREASED; TOTAL CELLS COUNTED 100
[2021-01-26] MEDS ORDERED: CefTRIAXone/D5W-Rocephin 1gm 50 ML IV ONE (08:40)
[2021-01-26] MEDS: heparin, porcine 5000 units/ml vial SQ SCH (09:32)
[2021-01-26] MEDS: lactobacillus rhamnosus 10,000 MMU CELLS/CAPSULE PO SCH (09:33)
[2021-01-26] MEDS: normal saline 1000ml 1,000 ML IV SCH (09:33)
[2021-01-26 10:00] VITALS: BP 122/71
[2021-01-26] MEDS ORDERED: CLIN-91 PO (11:55)
[2021-01-26] MEDS ORDERED: VANCOMYCIN LEVEL IV ONE (13:30)
[2021-01-27] MEDS ORDERED: CefTRIAXone/D5W-Rocephin 1gm 50 ML IV SCH (08:00)
== END 2021-01-26 14:17 | disposition home or self-care (01) | DRG 603 ==
LOC: ER 12:48 → ED HOLD 16:59
PROVIDERS: ADMIT Internal Medicine; ATTEND Internal Medicine
DX: L03.115 Cellulitis of right lower limb (principal); D64.9 Anemia, unspecified; E78.5 Hyperlipidemia, unspecified; F17.210 Nicotine dependence, cigarettes, uncomplicated; Z20.822 Contact with and (suspected) exposure to COVID-19; F15.10 Other stimulant abuse, uncomplicated; G47.30 Sleep apnea, unspecified; I48.91 Unspecified atrial fibrillation; J44.9 Chronic obstructive pulmonary disease, unspecified; Z79.51 Long term (current) use of inhaled steroids; Z79.899 Other long term (current) drug therapy; Z71.51 Drug abuse counseling and surveillance of drug abuser; Z71.6 Tobacco abuse counseling
CPT/HCPCS: 36415; 71045; 80053; 80202; 80305; 81003; 83605; 83735; 84145; 85007; 85025; 87040; 87635; 93971; 94640; 94760; 96365; 96366; 96368; 99285; G0378; J0696; J1644; J2270; J2543; J3370; J7030; J7626

== ENCOUNTER 2021-09-24 04:53 | Inpatient (IN) | payer OTHER, MEDICARE ==
[~2021-09-24] VITALS: Ht 172.7 cm; Wt 72.7 kg
[~2021-09-24 04:53] MED LIST changes: +CLIN-91 PO; +ERGO125013 PO; +MONT-40 PO; -MONT10TA32 PO; -POTA10TA36 PO; +POTA10TA37 PO; -[UNRECOGNIZED DRUG - CODE] PO
[2021-09-24] MEDS ORDERED: normal saline 1000ML IV soln IV ONE (05:10)
[2021-09-24] MEDS ORDERED: vancomycin/NS 1 GM ADD-VANTAGE 250 ML IV ONE (05:10)
--- NOTE | 2021-09-24 05:10 | NUR ---
PT STATES HE USED [facility] "COUPLE DAYS AGO".
[2021-09-24 06:34] LABS: BASOPHILS # (AUTO) 0.1 X10'3 (0-0.2); BASOPHILS % (AUTO) 0.4 % (0-1); EOSINOPHILS % (AUTO) 0 % (0-6); HEMATOCRIT 39.3 % (42.0-52.0); HEMOGLOBIN 13.4 g/dl (14.0-17.9); LYMPHOCYTES # (AUTO) 1.5 X10'3 (1.1-4.8); LYMPHOCYTES % (AUTO) 8.1 % (21-51); MEAN CORPUSCULAR HEMOGLOBIN 30.6 PG (27.0-31.0); MEAN CORPUSCULAR HGB CONC 34.2 g/dL (33.0-36.5); MEAN CORPUSCULAR VOLUME 89.5 FL (78-98); MEAN PLATELET VOLUME 7.1 FL (7.4-10.4); MONOCYTES # (AUTO) 0.9 X10'3 (0-0.9); MONOCYTES % (AUTO) 4.8 % (2-12); NEUTROPHILS # (AUTO) 16.2 X10'3 (1.8-7.7); NEUTROPHILS % (AUTO) 86.7 % (42-75); PLATELET COUNT 313 X10'3 (140-440); RED BLOOD COUNT 4.39 X10'6 (4.70-6.10); RED CELL DISTRIBUTION WIDTH 13.4 % (11.5-14.5); WHITE BLOOD COUNT 18.7 X10'3 (4.5-11.0)
[2021-09-24 06:54] LABS: ALANINE AMINOTRANSFERASE 22 U/L (12-78); ALBUMIN 2.7 G/DL (3.4-5.0); ALBUMIN/GLOBULIN RATIO 0.5 (1.1-1.5); ALKALINE PHOSPHATASE 62 IU/L (46-116); ANION GAP 7 (8-16); ASPARTATE AMINO TRANSFERASE 24 U/L (10-37); BILIRUBIN,TOTAL 0.6 MG/DL (0.1-1.0); BLOOD UREA NITROGEN 25 MG/DL (7-18); BUN/CREATININE RATIO 19.2 (5.4-32.0); CALCIUM 8.4 MG/DL (8.5-10.1); CHLORIDE 95 MMOL/L (99-107); GLUCOSE 110 MG/DL (70-104); MAGNESIUM 1.8 MG/DL (1.5-2.4); POTASSIUM 3.5 MMOL/L (3.5-5.1); SODIUM 130 MMOL/L (135-145); TOTAL CARBON DIOXIDE 28.5 MMOL/L (24-32); eGFR 55 ML/MIN
--- NOTE | 2021-09-24 07:15 | NUR ---
Patient states he is unable to give urine specimen at this time.
[2021-09-24] MEDS ORDERED: haloperidol lactate 5mg/ml inj IM PRN (07:55)
[2021-09-24] MEDS ORDERED: ipratropium/albuterol 3ml nebule NEB PRN (07:55)
[2021-09-24] MEDS ORDERED: LORazepam 2 mg/ml vial IV PRN (07:55)
[2021-09-24] MEDS ORDERED: haloperidol 5mg tablet PO PRN (07:55)
[2021-09-24] MEDS ORDERED: ondansetron/PF 4mg/2ml inj IV PRN (07:55)
[2021-09-24] MEDS ORDERED: mag hydrox/Alum hydrox/simeth 30ml oral suspension PO PRN (07:55)
[2021-09-24] MEDS ORDERED: magnesium 2GM in 50ml NS 50 ML IV PRN (07:55)
[2021-09-24] MEDS ORDERED: POTASSIUM BICARB 20meq eff tab 20 MEQ TABLET.EFF PO PRN (07:55)
[2021-09-24] MEDS ORDERED: albuterol 2.5 MG/3 ML nebule NEB PRN (07:55)
[2021-09-24] MEDS ORDERED: potassium CL 10mEq/100ml bag 100 ML IV PRN (07:55)
[2021-09-24] MEDS ORDERED: magnesium 4gm in 100ml NS 100 ML IV PRN (07:55)
[2021-09-24] MEDS ORDERED: acetaminophen 325mg tablet PO PRN ×2 (07:55→16:55)
[2021-09-24] MEDS: K and/or MAG REPLACEMENT MC SCH ×2 (08:00→19:50)
[2021-09-24] MEDS: docusate sod 100mg capsule PO SCH ×2 (08:00→20:21)
--- NOTE | 2021-09-24 08:45 | NUR ---
Patient attempted to give urine specimen in urinal; unable to produce urine.
[2021-09-24] MEDS ORDERED: cefTRIAXone 1g/NS 100ml IVPB 100 ML IV ONE (10:15)
[2021-09-24 10:17] LABS: CLARITY,URINE SLIGHTLY CLOUDY (Clear); COLOR,URINE YELLOW (Yellow); GLUCOSE, URINE NEGATIVE (Neg); KETONES,URINE TRACE mg/dl (Neg); LEUKOCYTE ESTERASE ,URINE NEGATIVE (Neg); NITRITES, URINE NEGATIVE (Neg); OCCULT BLOOD,URINE LARGE (Neg); PH,URINE 5.5 (4.8-8.0); PROTEIN,URINE 30 mg/dl (Neg); UROBILINOGEN,URINE 0.2 E.U/dL (0.2-1.0)
[2021-09-24 10:20] LABS: UA COLLECTION TYPE NON-SPECIFIED
[2021-09-24 10:31] LABS: BACTERIA,URINE FEW /HPF (Neg); RBC,URINE 20-50 /HPF (0-2)
[2021-09-24 10:32] LABS: MUCUS STRANDS NONE SEEN /LPF (Neg); SQUAMOUS EPITHELIAL CELL,UR FEW /LPF (FEW)
[2021-09-24 11:00] VITALS: BP 144/84
[2021-09-24] MEDS: normal saline 1000ml 1,000 ML IV SCH ×2 (11:08→19:49)
[2021-09-24] MEDS ORDERED: vancomycin/NS 1 GM ADD-VANTAGE 250 ML IV SCH (13:00)
[2021-09-24] MEDS: nicotine 21mg patch - 24 hr TD SCH (14:39)
--- NOTE | 2021-09-24 14:56 | NUR ---
Pt arrived to floor from ED at 1100. Pt in a deep sleep. Tele: ST Heart rate in 100s. Pt on room air; lungs clear/diminished. Right leg red from foot up to right anterior thigh, outlined in marker the redness. NS @ 100ml HR/ Nicotene patch applied to right deltoid. Bed alarm on for safety.
[2021-09-24 16:00] VITALS: BP 131/80
[2021-09-24] MEDS ORDERED: ACET325T57 PO (16:13)
[2021-09-24] MEDS ORDERED: IBUP-1984 PO (16:41)
[2021-09-24] MEDS ORDERED: FLUT1DIS15 INH (16:41)
[2021-09-24] MEDS: multivitamins, therapeutics tablet PO SCH (16:43)
[2021-09-24] MEDS: ipratropium/albuterol 3ml nebule IH SCH ×2 (17:51→20:35)
[2021-09-24 18:00] VITALS: BP 100/57
[2021-09-24] MEDS: montelukast 10mg tablet PO SCH (20:22)
[2021-09-24] MEDS: enoxaparin 40mg/0.4ml syringe SQ SCH (20:22)
[2021-09-24] MEDS: budesonide 0.5mg/2ml UD nebule IH SCH (20:35)
[2021-09-24] MEDS ORDERED: albuterol 2.5 MG/3 ML nebule NEB SCH (21:00)
[2021-09-24 22:00] VITALS: BP 103/69
[2021-09-25 02:00] VITALS: BP 125/79
[2021-09-25] MEDS: ipratropium/albuterol 3ml nebule IH SCH ×4 (03:00→20:45)
[2021-09-25] MEDS: normal saline 1000ml 1,000 ML IV SCH ×2 (04:02→11:28)
[2021-09-25] MEDS ORDERED: vancomycin/NS 1 GM ADD-VANTAGE 250 ML IV SCH (05:00)
[2021-09-25 05:57] LABS: BASOPHILS % (AUTO) 0.4 % (0-1); EOSINOPHILS % (AUTO) 0.1 % (0-6); HEMATOCRIT 32.1 % (42.0-52.0); HEMOGLOBIN 10.8 g/dl (14.0-17.9); LYMPHOCYTES # (AUTO) 1.1 X10'3 (1.1-4.8); LYMPHOCYTES % (AUTO) 12.5 % (21-51); MEAN CORPUSCULAR HGB CONC 33.7 g/dL (33.0-36.5); MEAN CORPUSCULAR VOLUME 88.8 FL (78-98); MONOCYTES # (AUTO) 0.7 X10'3 (0-0.9); MONOCYTES % (AUTO) 8.1 % (2-12); NEUTROPHILS # (AUTO) 6.8 X10'3 (1.8-7.7); NEUTROPHILS % (AUTO) 78.9 % (42-75); PLATELET COUNT 252 X10'3 (140-440); RED BLOOD COUNT 3.61 X10'6 (4.70-6.10); RED CELL DISTRIBUTION WIDTH 13.1 % (11.5-14.5); WHITE BLOOD COUNT 8.6 X10'3 (4.5-11.0)
[2021-09-25 06:19] LABS: ALANINE AMINOTRANSFERASE 18 U/L (12-78); ALBUMIN 1.9 G/DL (3.4-5.0); ALBUMIN/GLOBULIN RATIO 0.4 (1.1-1.5); ALKALINE PHOSPHATASE 46 IU/L (46-116); ANION GAP 9 (8-16); ASPARTATE AMINO TRANSFERASE 18 U/L (10-37); BILIRUBIN,TOTAL 0.4 MG/DL (0.1-1.0); BLOOD UREA NITROGEN 19 MG/DL (7-18); BUN/CREATININE RATIO 24.4 (5.4-32.0); CALCIUM 7.7 MG/DL (8.5-10.1); CHLORIDE 100 MMOL/L (99-107); CREATININE 0.78 MG/DL (0.60-1.10); GLUCOSE 96 MG/DL (70-104); LIPASE 108 U/L (73-393); MAGNESIUM 1.8 MG/DL (1.5-2.4); PHOSPHORUS 2.2 MG/DL (2.3-4.5); POTASSIUM 3.1 MMOL/L (3.5-5.1); SODIUM 133 MMOL/L (135-145); TOTAL CARBON DIOXIDE 24.3 MMOL/L (24-32); TOTAL PROTEIN 6.3 G/DL (6.4-8.2); eGFR > 90 ML/MIN
[2021-09-25 07:14] VITALS: BP 148/85
[2021-09-25] MEDS: K and/or MAG REPLACEMENT MC SCH ×2 (08:00→20:00)
[2021-09-25] MEDS: nicotine 21mg patch - 24 hr TD SCH ×2 (08:00→12:54)
[2021-09-25] MEDS: docusate sod 100mg capsule PO SCH ×2 (08:52→19:19)
[2021-09-25] MEDS: diltiazem CD 120mg capsule (once-daily) PO SCH (08:52)
[2021-09-25] MEDS: multivitamins, therapeutics tablet PO SCH (08:52)
[2021-09-25] MEDS: cefTRIAXone 1g/NS 100ml IVPB 100 ML IV SCH (08:52)
[2021-09-25] MEDS: POTASSIUM BICARB 20meq eff tab 20 MEQ TABLET.EFF PO PRN ×3 (08:59→18:28)
[2021-09-25] MEDS: budesonide 0.5mg/2ml UD nebule IH SCH ×2 (09:08→20:45)
[2021-09-25] MEDS ORDERED: fluconazole 100mg tablet PO ONE (10:25)
[2021-09-25] MEDS ORDERED: NICOTINE POLACRILEX 4 MG LOZENGE BC PRN (10:25)
[2021-09-25] MEDS ORDERED: NICOTINE POLACRILEX 2 MG LOZENGE BC PRN (10:29)
[2021-09-25 12:30] VITALS: BP 128/70
[2021-09-25] MEDS: vancomycin/NS 1 GM ADD-VANTAGE 250 ML IV SCH (15:14)
[2021-09-25 16:55] VITALS: BP 119/71
[2021-09-25 18:00] VITALS: BP 112/78
[2021-09-25] MEDS: enoxaparin 40mg/0.4ml syringe SQ SCH (19:19)
[2021-09-25] MEDS: montelukast 10mg tablet PO SCH (21:14)
[2021-09-25 22:00] VITALS: BP 124/78
[2021-09-26 02:00] VITALS: BP 129/77
[2021-09-26] MEDS: ipratropium/albuterol 3ml nebule IH SCH ×2 (02:44→09:28)
[2021-09-26] MEDS: vancomycin/NS 1 GM ADD-VANTAGE 250 ML IV SCH (05:29)
[2021-09-26 06:00] VITALS: BP 118/66
[2021-09-26 06:13] LABS: BASOPHILS % (AUTO) 0.3 % (0-1); EOSINOPHILS # (AUTO) 0.1 X10'3 (0-0.9); EOSINOPHILS % (AUTO) 0.8 % (0-6); HEMATOCRIT 31.4 % (42.0-52.0); HEMOGLOBIN 10.6 g/dl (14.0-17.9); LYMPHOCYTES # (AUTO) 1.5 X10'3 (1.1-4.8); LYMPHOCYTES % (AUTO) 22.5 % (21-51); MEAN CORPUSCULAR HEMOGLOBIN 29.7 PG (27.0-31.0); MEAN CORPUSCULAR HGB CONC 33.8 g/dL (33.0-36.5); MEAN PLATELET VOLUME 7.2 FL (7.4-10.4); MONOCYTES # (AUTO) 0.8 X10'3 (0-0.9); MONOCYTES % (AUTO) 11.3 % (2-12); NEUTROPHILS # (AUTO) 4.5 X10'3 (1.8-7.7); NEUTROPHILS % (AUTO) 65.1 % (42-75); PLATELET COUNT 247 X10'3 (140-440); RED BLOOD COUNT 3.57 X10'6 (4.70-6.10); RED CELL DISTRIBUTION WIDTH 13.3 % (11.5-14.5); WHITE BLOOD COUNT 6.9 X10'3 (4.5-11.0)
[2021-09-26 06:32] LABS: ALANINE AMINOTRANSFERASE 20 U/L (12-78); ALBUMIN/GLOBULIN RATIO 0.5 (1.1-1.5); ALKALINE PHOSPHATASE 45 IU/L (46-116); ANION GAP 6 (8-16); ASPARTATE AMINO TRANSFERASE 17 U/L (10-37); BILIRUBIN,TOTAL 0.2 MG/DL (0.1-1.0); BLOOD UREA NITROGEN 12 MG/DL (7-18); BUN/CREATININE RATIO 14.5 (5.4-32.0); CALCIUM 7.6 MG/DL (8.5-10.1); CHLORIDE 104 MMOL/L (99-107); CHOL/HDL RATIO 8.9 (0.00-4.99); CHOLESTEROL 134 MG/DL (0-200); CREATININE 0.83 MG/DL (0.60-1.10); GLUCOSE 105 MG/DL (70-104); HDL CHOLESTEROL 15 MG/DL (35-60); LDL CHOLESTEROL 80 MG/DL (50-100); LIPASE 173 U/L (73-393); MAGNESIUM 1.8 MG/DL (1.5-2.4); PHOSPHORUS 3.3 MG/DL (2.3-4.5); POTASSIUM 3.3 MMOL/L (3.5-5.1); SODIUM 136 MMOL/L (135-145); TOTAL CARBON DIOXIDE 25.7 MMOL/L (24-32); TOTAL PROTEIN 6.4 G/DL (6.4-8.2); TRIGLYCERIDES 175 MG/DL (20-135); eGFR > 90 ML/MIN
[2021-09-26] MEDS: multivitamins, therapeutics tablet PO SCH (07:28)
[2021-09-26] MEDS: docusate sod 100mg capsule PO SCH (07:31)
[2021-09-26] MEDS: diltiazem CD 120mg capsule (once-daily) PO SCH (07:32)
[2021-09-26] MEDS ORDERED: LORazepam 2 mg/ml vial IV PRN (07:55)
[2021-09-26] MEDS ORDERED: LORazepam 1 MG tablet PO PRN (07:55)
[2021-09-26] MEDS ORDERED: fluconazole 100mg tablet PO SCH (08:00)
[2021-09-26] MEDS: budesonide 0.5mg/2ml UD nebule IH SCH (09:28)
[2021-09-26] MEDS: cefTRIAXone 1g/NS 100ml IVPB 100 ML IV SCH (09:36)
[2021-09-26] MEDS ORDERED: POTA10TA37 PO (10:53)
[2021-09-26] MEDS ORDERED: VORI200T3 PO (10:53)
[2021-09-26] MEDS ORDERED: LEVO750T46 PO (10:53)
[2021-09-26] MEDS ORDERED: CEFD300C3 PO (10:53)
[2021-09-26] MEDS ORDERED: KETO120S5 TP (10:53)
[2021-09-26 11:00] VITALS: BP 108/63
[2021-09-26] MEDS ORDERED: FLUC200T38 PO (12:48)
[2021-09-26] MEDS ORDERED: CEFP100T7 PO (12:48)
[2021-09-26] MEDS ORDERED: VANCOMYCIN LEVEL IV ONE (15:30)
--- NOTE | 2021-09-26 18:14 | NUR ---
Pt discharged today. all discharge questions were answered. All medication were sent over to [facility]. Pt was able to get a ride through [facility] transport to supervisor opening and picking his medications and then home. All Ivs were removed. Telemetry box was removed. All belongs went over with him and he took them with him.
--- NOTE | 2021-09-27 07:15 | NUR ---
GUIDE DOMESTIC TOUR PHYSICAL ASSESSMENT documentation: I have reviewed and agree with all interventions, assessments performed and documented by Jeanette GRAY.
[2021-09-28] MEDS ORDERED: LORazepam 2 mg/ml vial IV PRN (07:55)
[2021-09-28] MEDS ORDERED: LORazepam 1 MG tablet PO PRN (07:55)
[2021-09-28] MEDS ORDERED: thiamine 100mg tablet PO SCH (08:00)
[2021-09-28] MEDS ORDERED: folic acid 1mg tablet PO SCH (08:00)
== END 2021-09-26 14:25 | disposition home or self-care (01) | DRG 871 ==
LOC: ER 04:53 → ED HOLD 08:00 → PCU 3S 10:57
PROVIDERS: ADMIT Family Medicine; ATTEND Family Medicine
DX: A41.9 Sepsis, unspecified organism (principal); N17.0 Acute kidney failure with tubular necrosis; G92.8 Other toxic encephalopathy; G93.41 Metabolic encephalopathy; L03.115 Cellulitis of right lower limb; I48.20 Chronic atrial fibrillation, unspecified; N39.0 Urinary tract infection, site not specified; F15.13 Other stimulant abuse with withdrawal; E87.1 Hypo-osmolality and hyponatremia; J44.9 Chronic obstructive pulmonary disease, unspecified; E78.5 Hyperlipidemia, unspecified; T43.621A Poisoning by amphetamines, accidental (unintentional), initial encounter; B35.0 Tinea barbae and tinea capitis; E86.0 Dehydration; G47.30 Sleep apnea, unspecified; E87.6 Hypokalemia; R65.20 Severe sepsis without septic shock; F17.210 Nicotine dependence, cigarettes, uncomplicated; Y92.89 Other specified places as the place of occurrence of the external cause; I25.2 Old myocardial infarction; Z59.00 Homelessness unspecified; Z86.73 Personal history of transient ischemic attack (TIA), and cerebral infarction without residual deficits; Z79.899 Other long term (current) drug therapy
CPT/HCPCS: 36415; 71045; 80053; 80061; 81001; 82948; 83605; 83690; 83735; 84100; 84145; 85025; 85610; 87040; 87077; 87081; 87088; 87186; 92508; 92616; 93005; 94640; 94760; 96365; 96366; 97161; 97530; 99285; G0378; J0696; J1650; J3370; J7030

== ENCOUNTER 2021-12-29 12:29 | Inpatient (IN) | payer OTHER, MEDICARE ==
[~2021-12-29] VITALS: Ht 162.6 cm; Wt 72.7 kg
[~2021-12-29 12:29] MED LIST changes: +ACET325T57 PO; -ATOR10TA70 PO; -BUDE10.2 INH; +CEFD300C3 PO; +CEFP100T7 PO; -CLIN-91 PO; -ERGO125013 PO; +FLUC200T38 PO; +FLUT1DIS15 INH; +IBUP-1984 PO; +KETO120S5 TP; +LEVO750T68 PO; -MAGN400C PO; +POTA-206 PO; -POTA10TA37 PO; +VORI200T3 PO
[2021-12-29 13:49] LABS: BASOPHILS % (AUTO) 0.2 % (0-1); EOSINOPHILS % (AUTO) 0 % (0-6); HEMATOCRIT 40.2 % (42.0-52.0); HEMOGLOBIN 13.7 g/dl (14.0-17.9); LYMPHOCYTES # (AUTO) 0.9 X10'3 (1.1-4.8); LYMPHOCYTES % (AUTO) 5.5 % (21-51); MEAN CORPUSCULAR HEMOGLOBIN 30.7 PG (27.0-31.0); MEAN CORPUSCULAR HGB CONC 34.1 g/dL (33.0-36.5); MEAN CORPUSCULAR VOLUME 89.9 FL (78-98); MEAN PLATELET VOLUME 6.9 FL (7.4-10.4); MONOCYTES # (AUTO) 0.4 X10'3 (0-0.9); MONOCYTES % (AUTO) 2.7 % (2-12); NEUTROPHILS # (AUTO) 14.3 X10'3 (1.8-7.7); NEUTROPHILS % (AUTO) 91.6 % (42-75); PLATELET COUNT 204 X10'3 (140-440); RED BLOOD COUNT 4.47 X10'6 (4.70-6.10); RED CELL DISTRIBUTION WIDTH 14.5 % (11.5-14.5); WHITE BLOOD COUNT 15.6 X10'3 (4.5-11.0)
[2021-12-29 14:09] LABS: ALANINE AMINOTRANSFERASE 25 U/L (12-78); ALBUMIN 3.1 G/DL (3.4-5.0); ALBUMIN/GLOBULIN RATIO 0.7 (1.1-1.5); ALKALINE PHOSPHATASE 46 IU/L (46-116); ANION GAP 9 (8-16); ASPARTATE AMINO TRANSFERASE 16 U/L (10-37); BILIRUBIN,TOTAL 0.6 MG/DL (0.1-1.0); BLOOD UREA NITROGEN 29 MG/DL (7-18); CALCIUM 8.4 MG/DL (8.5-10.1); CHLORIDE 97 MMOL/L (99-107); CREATININE 1.38 MG/DL (0.60-1.10); GLUCOSE 95 MG/DL (70-104); POTASSIUM 3.6 MMOL/L (3.5-5.1); SODIUM 133 MMOL/L (135-145); TOTAL CARBON DIOXIDE 27.1 MMOL/L (24-32); TOTAL PROTEIN 7.3 G/DL (6.4-8.2); eGFR 52 ML/MIN
[2021-12-29] MEDS ORDERED: acetaminophen 325mg tablet PO STA (16:27)
[2021-12-29] MEDS ORDERED: normal saline 1000ML IV soln IV ONE (16:30)
[2021-12-29] MEDS ORDERED: piperacillin/tazo 3.375gm/50ml 50 ML IV ONE (16:30)
[2021-12-29 16:44] LABS: CLARITY,URINE SLIGHTLY CLOUDY (Clear); COLOR,URINE YELLOW (Yellow); GLUCOSE, URINE NEGATIVE (Neg); KETONES,URINE NEGATIVE (Neg); LEUKOCYTE ESTERASE ,URINE NEGATIVE (Neg); NITRITES, URINE NEGATIVE (Neg); OCCULT BLOOD,URINE TRACE-INTACT (Neg); PROTEIN,URINE TRACE mg/dl (Neg); UROBILINOGEN,URINE 0.2 E.U/dL (0.2-1.0)
[2021-12-29 16:56] LABS: UA COLLECTION TYPE URINAL
[2021-12-29 16:59] LABS: BACTERIA,URINE FEW /HPF (Neg); MUCUS STRANDS FEW /LPF (Neg); RBC,URINE 0-2 /HPF (0-2); SQUAMOUS EPITHELIAL CELL,UR FEW /LPF (FEW); WBC CLUMPS,URINE FEW /HPF (NEGATIVE)
[2021-12-29] MEDS ORDERED: VANCOMYCIN 1,500MG inj. 1,500 MG in dextrose 5% water 500ml 500 ML IV STA (17:42)
[2021-12-29] MEDS ORDERED: ondansetron/PF 4mg/2ml inj IV PRN (17:45)
[2021-12-29] MEDS ORDERED: magnesium 2GM in 50ml NS 50 ML IV PRN (17:45)
[2021-12-29] MEDS ORDERED: potassium CL 10mEq/100ml bag 100 ML IV PRN (17:45)
[2021-12-29] MEDS ORDERED: magnesium hydroxide 30ml (MOM) UD suspension PO PRN (17:45)
[2021-12-29] MEDS ORDERED: magnesium 4gm in 100ml NS 100 ML IV PRN (17:45)
[2021-12-29] MEDS ORDERED: mag hydrox/Alum hydrox/simeth 30ml oral suspension PO PRN (17:45)
[2021-12-29] MEDS ORDERED: POTASSIUM BICARB 20meq eff tab 20 MEQ TABLET.EFF PO PRN (17:45)
[2021-12-29] MEDS ORDERED: magnesium Cl slow-release 64mg tablet PO PRN (17:45)
[2021-12-29 17:55] LABS: MAGNESIUM 1.6 MG/DL (1.5-2.4)
[2021-12-29] MEDS: normal saline 1000ml 1,000 ML IV SCH (18:01)
[2021-12-29] MEDS ORDERED: VANCOMYCIN 1,500MG inj. 1,500 MG in normal saline 500ml IV soln 300 ML IV STA (18:11)
[2021-12-29] MEDS: K and/or MAG REPLACEMENT MC SCH (19:47)
[2021-12-29] MEDS: docusate sod 100mg capsule PO SCH (20:42)
[2021-12-29] MEDS: heparin, porcine 5000 units/ml vial SQ SCH (20:42)
[2021-12-29] MEDS ORDERED: acetaminophen 325mg tablet PO PRN (20:45)
[2021-12-29] MEDS ORDERED: ibuprofen tablet 400 MG TABLET PO PRN (20:45)
[2021-12-29] MEDS ORDERED: ALBUTEROL INHALER 1 PUFF/90 MCG INHALation IH PRN (20:45)
[2021-12-29] MEDS ORDERED: vancomycin/NS 1 GM ADD-VANTAGE 250 ML IV SCH (21:00)
[2021-12-29] MEDS ORDERED: albuterol 2.5 MG/3 ML nebule NEB PRN (21:29)
--- NOTE | 2021-12-29 21:50 | NUR ---
Received report from EVI Reardon. Awaiting patient arrival to the floor.
[2021-12-29 22:10] VITALS: BP 164/79
[2021-12-29] MEDS: montelukast 10mg tablet PO SCH (22:10)
[2021-12-30] MEDS: normal saline 1000ml 1,000 ML IV SCH ×2 (00:05→13:57)
[2021-12-30] MEDS: acetaminophen 325mg tablet PO PRN ×2 (05:37→16:43)
[2021-12-30 06:00] VITALS: BP 120/64
[2021-12-30 06:18] LABS: ALBUMIN 2.4 G/DL (3.4-5.0); ANION GAP 8 (8-16); BLOOD UREA NITROGEN 19 MG/DL (7-18); BUN/CREATININE RATIO 18.4 (5.4-32.0); CALCIUM 7.5 MG/DL (8.5-10.1); CHLORIDE 99 MMOL/L (99-107); CREATININE 1.03 MG/DL (0.60-1.10); GLUCOSE 90 MG/DL (70-104); MAGNESIUM 1.6 MG/DL (1.5-2.4); POTASSIUM 3.1 MMOL/L (3.5-5.1); SODIUM 132 MMOL/L (135-145); TOTAL CARBON DIOXIDE 25.2 MMOL/L (24-32); eGFR 72 ML/MIN
--- NOTE | 2021-12-30 06:20 | NUR ---
Problems reprioritized. Patient report given, questions answered & plan of care reviewed with EVI Young.
[2021-12-30 06:21] LABS: BASOPHILS % (AUTO) 0.1 % (0-1); EOSINOPHILS % (AUTO) 0 % (0-6); HEMATOCRIT 34.7 % (42.0-52.0); HEMOGLOBIN 12.1 g/dl (14.0-17.9); LYMPHOCYTES % (AUTO) 7.7 % (21-51); MEAN CORPUSCULAR HEMOGLOBIN 31.2 PG (27.0-31.0); MEAN CORPUSCULAR HGB CONC 34.9 g/dL (33.0-36.5); MEAN CORPUSCULAR VOLUME 89.6 FL (78-98); MEAN PLATELET VOLUME 7.2 FL (7.4-10.4); MONOCYTES # (AUTO) 0.4 X10'3 (0-0.9); MONOCYTES % (AUTO) 3.5 % (2-12); NEUTROPHILS % (AUTO) 88.7 % (42-75); PLATELET COUNT 167 X10'3 (140-440); RED BLOOD COUNT 3.87 X10'6 (4.70-6.10); RED CELL DISTRIBUTION WIDTH 14.4 % (11.5-14.5); WHITE BLOOD COUNT 12.5 X10'3 (4.5-11.0)
--- NOTE | 2021-12-30 06:54 | NUR ---
Patient in room ORTHO 4020. I have received report from Mariann STEVE and had the opportunity to ask questions and assume patient care.
[2021-12-30] MEDS: ipratropium/albuterol 3ml nebule NEB SCH ×3 (07:23→20:12)
[2021-12-30] MEDS: budesonide 0.5mg/2ml UD nebule IH SCH ×2 (07:24→20:12)
[2021-12-30] MEDS: K and/or MAG REPLACEMENT MC SCH ×2 (08:00→19:59)
[2021-12-30] MEDS ORDERED: ipratropium 0.5 MG/2.5ML nebule NEB SCH (08:00)
[2021-12-30] MEDS ORDERED: albuterol 2.5 MG/3 ML nebule NEB SCH (08:00)
[2021-12-30] MEDS: diltiazem CD 120mg capsule (once-daily) PO SCH (09:05)
[2021-12-30] MEDS: docusate sod 100mg capsule PO SCH ×2 (09:05→20:02)
[2021-12-30] MEDS: POTASSIUM BICARB 20meq eff tab 20 MEQ TABLET.EFF PO PRN ×2 (09:05→19:58)
[2021-12-30] MEDS: heparin, porcine 5000 units/ml vial SQ SCH ×2 (09:07→19:57)
[2021-12-30 11:22] VITALS: BP 111/77
[2021-12-30] MEDS ORDERED: vancomycin/NS 1 GM ADD-VANTAGE 250 ML IV SCH (15:00)
--- NOTE | 2021-12-30 17:39 | NUR ---
PAGER ID: [phone] MESSAGE: Hector Bower [phone] Re: 40[address] Sánchez had a fever of 102.2 patient already treated with Tylenol, Thanks hector.
--- NOTE | 2021-12-30 17:59 | NUR ---
PAGER ID: [phone] MESSAGE: Hector Bower [id number] re [address] Sánchez, 1 hour after Tylenol and fever is still 101, did you want to add any new labs on patient? Thanks.
[2021-12-30 18:00] VITALS: BP 128/79
[2021-12-30] MEDS ORDERED: ibuprofen tablet 400 MG TABLET PO PRN (18:05)
--- NOTE | 2021-12-30 18:44 | NUR ---
Problems reprioritized. Patient report given, questions answered & plan of care reviewed with Johnna STEVE.
[2021-12-30] MEDS: montelukast 10mg tablet PO SCH (20:00)
[2021-12-30 22:00] VITALS: BP 97/47
[2021-12-31] MEDS: normal saline 1000ml 1,000 ML IV SCH ×3 (00:12→16:07)
[2021-12-31] MEDS: POTASSIUM BICARB 20meq eff tab 20 MEQ TABLET.EFF PO PRN ×4 (00:37→22:25)
[2021-12-31] MEDS: vancomycin/NS 1 GM ADD-VANTAGE 250 ML IV SCH ×2 (03:04→15:09)
[2021-12-31] MEDS: ipratropium/albuterol 3ml nebule NEB SCH ×4 (03:10→19:56)
[2021-12-31 06:20] LABS: ALBUMIN 2.1 G/DL (3.4-5.0); ANION GAP 9 (8-16); BLOOD UREA NITROGEN 15 MG/DL (7-18); BUN/CREATININE RATIO 21.4 (5.4-32.0); CALCIUM 7.7 MG/DL (8.5-10.1); CHLORIDE 104 MMOL/L (99-107); GLUCOSE 98 MG/DL (70-104); POTASSIUM 3.1 MMOL/L (3.5-5.1); SODIUM 138 MMOL/L (135-145); TOTAL CARBON DIOXIDE 25.2 MMOL/L (24-32); eGFR > 90 ML/MIN
[2021-12-31 06:29] LABS: HEMATOCRIT 32.8 % (42.0-52.0); HEMOGLOBIN 11.4 g/dl (14.0-17.9); MEAN CORPUSCULAR VOLUME 89.6 FL (78-98); RED BLOOD COUNT 3.67 X10'6 (4.70-6.10); WHITE BLOOD COUNT 7.7 X10'3 (4.5-11.0)
[2021-12-31 06:30] LABS: BASOPHILS % (AUTO) 0.2 % (0-1); EOSINOPHILS % (AUTO) 0.4 % (0-6); LYMPHOCYTES % (AUTO) 13.2 % (21-51); MEAN CORPUSCULAR HGB CONC 34.6 g/dL (33.0-36.5); MEAN PLATELET VOLUME 7.2 FL (7.4-10.4); MONOCYTES # (AUTO) 0.5 X10'3 (0-0.9); MONOCYTES % (AUTO) 7.1 % (2-12); NEUTROPHILS # (AUTO) 6.1 X10'3 (1.8-7.7); NEUTROPHILS % (AUTO) 79.1 % (42-75); PLATELET COUNT 150 X10'3 (140-440); RED CELL DISTRIBUTION WIDTH 14.3 % (11.5-14.5)
--- NOTE | 2021-12-31 07:12 | NUR ---
Patient in room ORTHO 4020. I have received report from Johnna STEVE and had the opportunity to ask questions and assume patient care.
[2021-12-31 07:21] VITALS: BP 116/69
[2021-12-31] MEDS: docusate sod 100mg capsule PO SCH ×2 (07:30→20:00)
[2021-12-31] MEDS: diltiazem CD 120mg capsule (once-daily) PO SCH (07:30)
[2021-12-31] MEDS: heparin, porcine 5000 units/ml vial SQ SCH ×2 (07:32→20:39)
[2021-12-31] MEDS: budesonide 0.5mg/2ml UD nebule IH SCH ×2 (08:00→19:56)
[2021-12-31] MEDS: K and/or MAG REPLACEMENT MC SCH ×2 (08:00→20:00)
[2021-12-31 11:03] VITALS: BP 109/53
[2021-12-31] MEDS ORDERED: VANCOMYCIN LEVEL IV ONE (14:30)
[2021-12-31] MEDS: clindamycin 150mg capsule PO SCH ×2 (15:09→20:38)
--- NOTE | 2021-12-31 18:23 | NUR ---
Problems reprioritized. Patient report given, questions answered & plan of care reviewed with Lilly STEVE.
[2021-12-31 18:30] VITALS: BP 104/72
--- NOTE | 2021-12-31 18:30 | NUR ---
Assumed care of pt after report from Hector STEVE.
[2021-12-31] MEDS: montelukast 10mg tablet PO SCH (20:39)
[2021-12-31 22:20] VITALS: BP 119/74
[2022-01-01] MEDS: clindamycin 150mg capsule PO SCH ×3 (02:24→14:19)
[2022-01-01] MEDS ORDERED: VANCOMYCIN LEVEL IV ONE (02:30)
[2022-01-01] MEDS: ipratropium/albuterol 3ml nebule NEB SCH ×2 (02:40→07:48)
[2022-01-01] MEDS: vancomycin/NS 1 GM ADD-VANTAGE 250 ML IV SCH (02:41)
[2022-01-01 03:01] LABS: BASOPHILS % (AUTO) 0.4 % (0-1); EOSINOPHILS # (AUTO) 0.1 X10'3 (0-0.9); EOSINOPHILS % (AUTO) 1.1 % (0-6); HEMATOCRIT 31.7 % (42.0-52.0); HEMOGLOBIN 11.1 g/dl (14.0-17.9); LYMPHOCYTES # (AUTO) 1.2 X10'3 (1.1-4.8); LYMPHOCYTES % (AUTO) 19.1 % (21-51); MEAN CORPUSCULAR HEMOGLOBIN 31.3 PG (27.0-31.0); MEAN CORPUSCULAR VOLUME 89.6 FL (78-98); MEAN PLATELET VOLUME 7.1 FL (7.4-10.4); MONOCYTES # (AUTO) 0.6 X10'3 (0-0.9); MONOCYTES % (AUTO) 9.6 % (2-12); NEUTROPHILS # (AUTO) 4.4 X10'3 (1.8-7.7); NEUTROPHILS % (AUTO) 69.8 % (42-75); PLATELET COUNT 177 X10'3 (140-440); RED BLOOD COUNT 3.53 X10'6 (4.70-6.10); RED CELL DISTRIBUTION WIDTH 14.4 % (11.5-14.5); WHITE BLOOD COUNT 6.4 X10'3 (4.5-11.0)
[2022-01-01 03:09] LABS: ALBUMIN 2.3 G/DL (3.4-5.0); ANION GAP 7 (8-16); BLOOD UREA NITROGEN 11 MG/DL (7-18); BUN/CREATININE RATIO 14.3 (5.4-32.0); CALCIUM 7.8 MG/DL (8.5-10.1); CHLORIDE 104 MMOL/L (99-107); CREATININE 0.77 MG/DL (0.60-1.10); GLUCOSE 99 MG/DL (70-104); MAGNESIUM 1.8 MG/DL (1.5-2.4); POTASSIUM 3.7 MMOL/L (3.5-5.1); SODIUM 137 MMOL/L (135-145); TOTAL CARBON DIOXIDE 25.6 MMOL/L (24-32); VANCOMYCIN,TROUGH 9.5 UG/ML (6.0-14.0); eGFR > 90 ML/MIN
[2022-01-01 06:00] VITALS: BP 124/85
--- NOTE | 2022-01-01 06:30 | NUR ---
Report to Chante STEVE.
--- NOTE | 2022-01-01 06:46 | NUR ---
Patient in room ORTHO 4020. I have received report from EVI Carr and had the opportunity to ask questions and assume patient care.
[2022-01-01] MEDS: budesonide 0.5mg/2ml UD nebule IH SCH (07:49)
[2022-01-01] MEDS: K and/or MAG REPLACEMENT MC SCH (08:00)
[2022-01-01] MEDS: docusate sod 100mg capsule PO SCH (08:41)
[2022-01-01] MEDS: diltiazem CD 120mg capsule (once-daily) PO SCH (08:41)
[2022-01-01] MEDS: heparin, porcine 5000 units/ml vial SQ SCH (08:42)
--- NOTE | 2022-01-01 09:35 | NUR ---
Initial: Pt admit for sepsis secondary to right leg cellulitis. Currently on a regular diet and eating well, documented with 100% PO intake throughout LOS meeting estimated nutrient needs. LBM 12/31, receiving routine bowel care. No nutrition intervention implemented at this time. Will continue to follow. Recommendations: 1) Continue regular diet 2) Monitor need for additional protein for satiety 3) Routine bowel care 4) Scaled weight this admit; subsequent weekly scaled weights Addendum: 01/01/22 at [address] Amended: Links added.
[2022-01-01 10:00] VITALS: BP 123/70
[2022-01-01] MEDS ORDERED: CLE150C PO (11:21)
--- NOTE | 2022-01-01 13:30 | NUR ---
I have reviewed and agree with all interventions, assessments performed, and documention by DIANA Sharif.
--- NOTE | 2022-01-01 14:03 | NUR ---
PAGER ID: [phone] MESSAGE: Patient in room 4020 ANoe is discharging but has an order for Vanco IV. Would you like to DC the vanco and continue po clindamycin?
--- NOTE | 2022-01-01 14:50 | NUR ---
Patient discharge home. Discharge information was review patient whom verbalized understanding. Staff assist patient to cab with call belongings.
[2022-01-01] MEDS ORDERED: VANCOmycin 1250MG/NS 250ml Bag 250 ML IV SCH (15:00)
[2022-01-03] MEDS ORDERED: VANCOMYCIN LEVEL IV ONE (02:30)
== END 2022-01-01 14:45 | disposition home or self-care (01) | DRG 871 ==
LOC: ER 12:29 → ED HOLD 17:44 → ORTHO 4S 22:00
PROVIDERS: ADMIT Family Medicine; ATTEND Family Medicine
DX: A41.9 Sepsis, unspecified organism (principal); G92.9 Unspecified toxic encephalopathy; L03.115 Cellulitis of right lower limb; F17.210 Nicotine dependence, cigarettes, uncomplicated; F15.10 Other stimulant abuse, uncomplicated; T43.621A Poisoning by amphetamines, accidental (unintentional), initial encounter; J44.9 Chronic obstructive pulmonary disease, unspecified; T43.625A Adverse effect of amphetamines, initial encounter; F29 Unspecified psychosis not due to a substance or known physiological condition; E87.6 Hypokalemia; Z20.822 Contact with and (suspected) exposure to COVID-19; E78.5 Hyperlipidemia, unspecified; I10 Essential (primary) hypertension; I48.91 Unspecified atrial fibrillation; I87.8 Other specified disorders of veins; G47.30 Sleep apnea, unspecified; Z86.73 Personal history of transient ischemic attack (TIA), and cerebral infarction without residual deficits; Z71.51 Drug abuse counseling and surveillance of drug abuser; Y92.89 Other specified places as the place of occurrence of the external cause
CPT/HCPCS: 36415; 71045; 80048; 80053; 80202; 81001; 83605; 83735; 83880; 84145; 84484; 85025; 87040; 87081; 87088; 87635; 93005; 94640; 94760; 96365; 99285; C9803; G0378; J1644; J2543; J3370; J7030; J7040